=== PATIENT | male | born 1955 | race Caucasian/White ===

== ENCOUNTER 2022-12-30 10:52 | Outpatient (REF) | payer OTHER, SELFPAY ==
[2022-12-30 13:40] LABS: Hematocrit 44.2 % (42.0-52.0); Hemoglobin 14.7 g/dl (14.0-18.0); Mean Corpuscular HGB Conc 33.3 g/dl (31.0-36.0); Mean Corpuscular Hemoglobin 30.4 pg (27.0-33.0); Mean Corpuscular Volume 91.3 fL (80.0-98.0); Mean Platelet Volume 9.7 fL (9.4-12.4); Platelet Count 180 X10*3/uL (160-400); Red Blood Count 4.84 X10*6/uL (4.60-5.80); Red Cell Distribution Width 12.9 % (11.0-16.0); White Blood Count 5.3 X10*3/uL (4.8-10.8)
[2022-12-30 14:13] LABS: Alanine Aminotransferase 50 U/L (0-40); Albumin Level 4.1 g/dL (3.5-5.0); Alkaline Phosphatase 60 U/L (39-117); Anion Gap 12 (12-20); Aspartate Amino Transferase 32 U/L (5-37); Bilirubin Total 0.7 mg/dL (0.0-1.0); Blood Urea Nitrogen 15 mg/dL (9-16); Calcium 9.8 mg/dL (8.4-10.2); Carbon Dioxide 31 mmol/L (22-29); Chloride 104 mmol/L (96-108); Cholesterol 205 mg/dL; Estimated Glomerular Filt Rate > 60; Glucose Fasting 102 mg/dL (60-99); HDL Cholesterol 58 mg/dL; LDL Cholesterol Calculated 115 mg/dl; Potassium 4.6 mmol/L (3.3-5.1); Sodium 142 mmol/L (135-145); Total Protein 6.7 g/dL (6.5-8.0); Triglycerides 163 mg/dL
[2022-12-30 14:42] LABS: Folate 9.9 ng/mL (> or = 4.0); TSH reflex Free T4 0.79 uIU/mL (0.32-4.0); Vitamin B12 1245 pg/mL (200-900)
[2023-01-04 16:59] LABS: PSA, Ultra Sensitive 0.94 ng/mL
== END 2022-12-30 10:53 | disposition home or self-care (01) ==
LOC: HO.WFDLDS 10:52
PROVIDERS: Visit Provider Nurse Practitioner Family
DX: Z00.00 Encounter for general adult medical examination without abnormal findings (principal); Z20.2 Contact with and (suspected) exposure to infections with a predominantly sexual mode of transmission; Z12.5 Encounter for screening for malignant neoplasm of prostate; E55.9 Vitamin D deficiency, unspecified
CPT/HCPCS: 36415; 80053; 80061; 82306; 82607; 82746; 84153; 84443; 85027

== ENCOUNTER 2023-03-22 10:47 | Outpatient (REF) | payer OTHER, SELFPAY ==
[2023-03-22 14:55] LABS: Vitamin D 25-OH Total 79.8 ng/mL (>30)
== END 2023-03-22 10:48 | disposition home or self-care (01) ==
LOC: HO.WFDLDS 10:47
PROVIDERS: Visit Provider Nurse Practitioner Family
DX: E55.9 Vitamin D deficiency, unspecified (principal)
CPT/HCPCS: 36415; 82306

== ENCOUNTER 2023-04-25 15:33 | Outpatient (AMB) | payer OTHER, SELFPAY ==
[2023-04-25 15:48] VITALS: BP 140/86; PULSE 69; O2SAT 95; BMI 29.9
--- NOTE | 2023-04-25 15:48 | A.OFFPC_ITS ---
Vital Signs 04/25/23 15:48 04/25/23 16:52 Height 5 ft 9 in Weight 202 lb 4 oz BMI 29.9 BP 140/86 H 150/88 H Blood Pressure Location Lt brachial Lt brachial Position Sitting Sitting Pulse 69 Pulse Source Pulse Oximeter Pulse Oximetry (%) 95 Oxygen Delivery Method Room Air Intake Visit Reasons: Transfer of care [facility]/ [facility] review Allergies No Known Allergies Allergy (Verified 04/25/23 15:50) Medication List - Last Reconciled 04/25/23 by ELIEZER Sharif doxazosin (Cardura) 1 mg PO BEDTIME 30 days lisinopril-hydrochlorothiazide 10-12.5 mg 1 tab PO DAILY 30 days simvastatin 20 mg PO BEDTIME 30 days trazodone 25 mg (1/2 x 50 mg) PO BEDTIME PRN 30 days Tobacco use date assessed: 04/25/23 Fall risk assessment: No Falls in past year Last assessed Fall Risk: 04/25/23 Dental Screening Dental Screen Date: 04/25/23 Did you have a dental visit in the last 12 months?: Yes Did you have a dental problem in the last 6 months where you did not have access to dental care?: No Was dental information given to patient?: Patient has dentist HPI Transfer of care [facility]/ [facility] review HPI Details New pt is here to establish care. HTN: Blood pressure is managed with lisinopril-hydrochlorothiazide 10-12.5mg. Pt's blood pressure is elevated today, encouraged pt to monitor his BP at home. Denies chest pain, shortness of breath, headache, dizziness, and blurred vision. Pt c/o insomnia. He is currently taking trazodone 25mg. Will increase to 50mg. Pt reports ED and would like a medication for this. Will send sildenafil. Pt c/o constipation. Will send colace. Hx of vitamin D and B12 deficiency, will order labs. Refuses pneumonia and shingles vaccines. Pt will consider a repeat colon screen (mother and grandparent had colon ca). Due for PSA, will order. Denies dribbling with urination, does have a intermittent weak stream (was seeing urology previously), and denies nocturia. [facility] Medical History (Updated 04/25/23 @ 16:39 by ELIEZER Sharif) Headache High cholesterol Hypertension Irritable bowel syndrome (IBS) Sinusitis Surgical History No pertinent past surgical history Family History Mother Colon cancer Other No family history of alcoholism No family history of mental disorder Social History Housing: Other Housing Other:: Mobile home Alcohol intake: former Patient Tobacco Use Status: Former Tobacco user e-Cigarette/Vaping Use: Never Used service: No Current occupational status: retired Current occupational exposures/hazards: No Cognitive needs: No Hearing needs: No Vision needs: Yes Questionnaire Thrive Questionnaire Date Thrive assessed: 12/27/22 AUDIT C Alcohol Use Questionnaire (AUDIT-C) 1. How often do you have a drink containing alcohol?: Never Total Score: 0 ALENA-7 AMB Questionnaire ALENA-7 Date ALENA - 7 assessed: 12/27/22 Source: Developed by Drs. Christian Eugene, Nancy Calderon, Isauro Webb and colleagues, with an educational tori from [employer]. Review of Systems Const Reports as per HPI Physical exam (Primary Care) Vital Signs: Last Vital Signs Pulse 69 04/25/23 15:48 BP 150/88 H 04/25/23 16:52 Pulse Ox 95 04/25/23 15:48 Oxygen Delivery Method Room Air 04/25/23 15:48 BMI result Body Mass Index 29.9 Tobacco/Smoking Status: Tobacco use Status Tobacco use date assessed 04/25/23 04/25/23 15:54 Patient Tobacco Use Status Former Tobacco user 04/25/23 15:48 e-Cigarette/Vaping Use Never Used 04/25/23 15:48 Thrive Assessment: Date of Thrive Assessment Date Thrive assessed 12/27/22 04/25/23 15:48 Const General: cooperative Orientation/consciousness: patient oriented x3 Resp Effort & Inspection: normal respiratory effort Auscultation: clear to auscultation bilaterally Cardio Rate: regular rate Rhythm: regular rhythm Heart sounds: S1 normal heart sound present, S2 normal heart sound present and no murmurs Neuro General: patient oriented x3 Extrem Right lower extremity: no edema Left lower extremity: no edema Psych Appearance: grossly normal Mental Status: mental status grossly normal Speech and movement: Normal speech and movement present Affect: normal affect Attitude: cooperative Thought process: Normal thought process present Thought content: Normal thought content present Insight: Good insight present (Psych) Judgement: Good judgement present (Psych) Assessment and Plan Assessment & Plan (1) Hypertension: Code(s): I10 - Essential (primary) hypertension Qualifiers: Hypertension type: unspecified Qualified Code(s): I10 - Essential (primary) hypertension Plan: Monitor BP at home (2) Vitamin D deficiency: Code(s): E55.9 - Vitamin D deficiency, unspecified Plan: Labs ordered (3) B12 deficiency: Code(s): E53.8 - Deficiency of other specified B group vitamins Plan: Labs ordered (4) Screening for prostate cancer: Code(s): Z12.5 - Encounter for screening for malignant neoplasm of prostate Plan: PSA ordered (5) Constipation: Code(s): K59.00 - Constipation, unspecified Plan: Colace sent Plan The patient agreed to the use of a biomedical engineering aide for this encounter. Scribed for KARIME Butts-ERIK by Celina Fountain biomedical engineering aide, on 04/25/2023 at 16:10 EST. Orders: Orders Comprehensive [place]. Panel Fast Today I10 - Essential (primary) hypertension Lipid Panel Today I10 - Essential (primary) hypertension TSH reflex Free T4 Today I10 - Essential (primary) hypertension Complete Blood Count Auto Diff Today I10 - Essential (primary) hypertension UA CC w/rflx Micro + Cult Today I10 - Essential (primary) hypertension Vitamin D 25-OH Total Today E55.9 - Vitamin D deficiency, unspecified Vitamin B12 and Folate Today E53.8 - Deficiency of other specified B group vitamins Prostate Specific Antigen Scr Today Z12.5 - Encounter for screening for malignant neoplasm of prostate Medications: New sildenafil 100 mg PO DAILY 14 days PRN 14 tabs 0RF sexual activity docusate sodium (Colace) 100 mg PO BID 30 days 60 caps 3RF Changed From trazodone 25 mg (1/2 x 50 mg) PO BEDTIME 30 days PRN 30 tabs 2RF insomnia To trazodone 50 mg PO BEDTIME 30 days PRN 30 tabs 2RF insomnia Coding Level of Care Code New Pt Level 3 (78322) Diagnoses Hypertension I10 Hypertension type: unspecified Vitamin D deficiency E55.9 B12 deficiency E53.8 Screening for prostate cancer Z12.5 Constipation K59.00
[2023-04-25 16:52] VITALS: BP 150/88
== END 2023-04-25 16:58 | disposition home or self-care (01) ==
PROVIDERS: Visit Provider Nurse Practitioner Family
DX: I10 Essential (primary) hypertension (principal); E55.9 Vitamin D deficiency, unspecified; E53.8 Deficiency of other specified B group vitamins; Z12.5 Encounter for screening for malignant neoplasm of prostate; K59.00 Constipation, unspecified
CPT/HCPCS: 99203; 99213

== ENCOUNTER 2023-05-17 08:58 | Outpatient (AMB) | payer OTHER, SELFPAY ==
--- NOTE | 2023-05-17 09:44 | MHC.OFFWIV ---
Intake Vital Signs 05/17/23 09:50 Height 5 ft 9 in Weight 201 lb 2 oz BMI 29.7 BP 124/74 Blood Pressure Location Rt brachial Position Sitting Pulse 72 Pulse Source Pulse Oximeter Temp 97.2 F Temp Source Temporal Artery Scan Pulse Oximetry (%) 96 Oxygen Delivery Method Room Air Intake Visit Reasons: EP Weak/Difficulty breathing/Stomach (masked) Intake Note: Pt is here c/o having little to no energy for the past four days. Pt states he is having trouble sleeping and is having some stomach discomforts on and off. Patient Tobacco Use Status: Former Tobacco user Allergies No Known Allergies Allergy (Verified 05/19/23 18:15) Medication List - Last Reconciled 05/17/23 by Yossi Nazario MD docusate sodium (Colace) 100 mg PO BID 30 days doxazosin (Cardura) 1 mg PO BEDTIME 30 days lisinopril-hydrochlorothiazide 10-12.5 mg 1 tab PO DAILY 30 days sildenafil 100 mg PO DAILY PRN 14 days simvastatin 20 mg PO BEDTIME 30 days trazodone 50 mg PO BEDTIME PRN 30 days HPI EP Weak/Difficulty breathing/Stomach (masked) HPI Details As per the intake. [facility] Medical History (Updated 05/17/23 @ 10:33 by Yossi Nazario MD) Headache High cholesterol Hypertension Irritable bowel syndrome (IBS) Sinusitis Surgical History No pertinent past surgical history Family History Mother Colon cancer Other No family history of alcoholism No family history of mental disorder Social History Housing: Other Housing Other:: Mobile home Alcohol intake: former Patient Tobacco Use Status: Former Tobacco user e-Cigarette/Vaping Use: Never Used service: No Current occupational status: retired Current occupational exposures/hazards: No Cognitive needs: No Hearing needs: No Vision needs: Yes Physical Exam Vital Signs: Last Vital Signs Temp 97.2 F 05/17/23 09:50 Pulse 72 05/17/23 09:50 BP 124/74 05/17/23 09:50 Pulse Ox 96 05/17/23 09:50 Oxygen Delivery Method Room Air 05/17/23 09:50 BMI result Body Mass Index 29.7 Const General: cooperative and healthy appearing Nutritional Appearance: well nourished Orientation/consciousness: patient oriented x3 Limitations: no limitations HEENT Head: Yes normal to inspection Eyes General: appearance normal, both eyes and all related structures Neck Neck: Yes normal visual inspection Chest Chest palpation & inspection: normal palpation of entire chest wall Resp Effort & Inspection: normal respiratory effort Neuro General: patient oriented x3 Assessment & Plan Assessment & Plan (1) Fatigue: Code(s): R53.83 - Other fatigue Plan: Blood work and COVID testing has been done. Will call with results. Orders: Orders SARS-CoV2/FLU/RSV 05/17/23 R43.9 - Unspecified disturbances of smell and taste Basic Metabolic Panel 05/17/23 R53.83 - Other fatigue Lipid Panel 05/17/23 R53.83 - Other fatigue Liver Panel 05/17/23 R53.83 - Other fatigue Thyroid Stimulating Hormone 05/17/23 R53.83 - Other fatigue Complete Blood Count no Diff 05/17/23 R53.83 - Other fatigue Erythrocyte Sedimentation Rate 05/17/23 R53.83 - Other fatigue Coding Level of Care Code Est Pt Level 3 (19046) Diagnoses Fatigue R53.83
[2023-05-17 09:50] VITALS: BP 124/74; PULSE 72; TEMP 36.2; O2SAT 96; BMI 29.7
== END 2023-05-17 11:13 | disposition home or self-care (01) ==
PROVIDERS: PCP Nurse Practitioner Family; Visit Provider Internal Medicine
DX: R53.83 Other fatigue (principal)
CPT/HCPCS: 99213

== ENCOUNTER 2023-05-17 10:32 | Outpatient (REF) | payer OTHER, SELFPAY ==
[2023-05-17 13:40] LABS: Hematocrit 43.4 % (42.0-52.0); Hemoglobin 14.8 g/dl (14.0-18.0); Mean Corpuscular HGB Conc 34.1 g/dl (31.0-36.0); Mean Corpuscular Hemoglobin 30.5 pg (27.0-33.0); Mean Corpuscular Volume 89.3 fL (80.0-98.0); Mean Platelet Volume 9.7 fL (9.4-12.4); Platelet Count 186 X10*3/uL (160-400); Red Blood Count 4.86 X10*6/uL (4.60-5.80); Red Cell Distribution Width 12.3 % (11.0-16.0); White Blood Count 4.4 X10*3/uL (4.8-10.8)
[2023-05-17 14:12] LABS: Alanine Aminotransferase 41 U/L (0-40); Albumin Level 4.3 g/dL (3.5-5.0); Alkaline Phosphatase 52 U/L (39-117); Anion Gap 11 (12-20); Aspartate Amino Transferase 25 U/L (5-37); Bilirubin Direct 0.2 mg/dL (0.0-0.5); Bilirubin Total 0.7 mg/dL (0.0-1.0); Blood Urea Nitrogen 15 mg/dL (9-16); Carbon Dioxide 28 mmol/L (22-29); Chloride 103 mmol/L (96-108); Cholesterol 182 mg/dL (<200); Estimated Glomerular Filt Rate > 60; Glucose Random 103 mg/dL (60-115); HDL Cholesterol 53 mg/dL (>40); LDL Cholesterol Calculated 98 mg/dL (<100); Sodium 138 mmol/L (135-145); Thyroid Stimulating Hormone 0.77 uIU/mL (0.32-4.0); Total Protein 7.2 g/dL (6.5-8.0); Triglycerides 158 mg/dL (<150)
[2023-05-17 14:18] LABS: Erythrocyte Sedimentation Rate 2 MM/HR (0-15)
[2023-05-17 18:03] LABS: Influenza A PCR NEGATIVE (Negative); Influenza B PCR NEGATIVE (Negative); Resp Syncy Virus RNA Qual PCR NEGATIVE (Negative); SARS COV2 PCR INHOUSE NEGATIVE (Negative)
== END 2023-05-17 10:33 | disposition home or self-care (01) ==
LOC: HO.HMGCLDS 10:32
PROVIDERS: PCP Nurse Practitioner Family; Visit Provider Internal Medicine
DX: R53.83 Other fatigue (principal); R43.9 Unspecified disturbances of smell and taste; Z20.822 Contact with and (suspected) exposure to COVID-19
CPT/HCPCS: 0241U; 36415; 80048; 80061; 80076; 84443; 85027; 85652

== ENCOUNTER 2023-05-30 09:50 | Outpatient (REF) | payer OTHER, SELFPAY ==
[2023-05-30 13:25] LABS: MANUAL DIFF FLAG NO
[2023-05-30 13:38] LABS: Basophils Percent Auto 0.4 % (0-2); Eosinophils Absolute Auto 0.1 X10*3/uL (0.0-0.4); Eosinophils Percent Auto 1.1 % (0-4); Hemoglobin 14.8 g/dl (14.0-18.0); Imm Gran Abs Auto 0.02 X10*3/uL (0.00-0.03); Imm Gran Pct Auto 0.4 % (0.0-0.4); Lymphocytes Absolute Auto 1.5 X10*3/uL (1.2-4.9); Lymphocytes Percent Auto 34.5 % (20-40); Mean Corpuscular HGB Conc 33.6 g/dl (31.0-36.0); Mean Corpuscular Hemoglobin 30.8 pg (27.0-33.0); Mean Corpuscular Volume 91.7 fL (80.0-98.0); Mean Platelet Volume 9.5 fL (9.4-12.4); Monocytes Absolute Auto 0.5 X10*3/uL (0.1-1.2); Monocytes Percent Auto 10.5 % (2-11); Neutrophils Absolute Auto 2.4 x10*3/uL (2.0-8.3); Neutrophils Percent Auto 53.1 % (45-73); Platelet Count 201 X10*3/uL (160-400); Red Cell Distribution Width 12.6 % (11.0-16.0); White Blood Count 4.5 X10*3/uL (4.8-10.8)
[2023-05-30 13:51] LABS: Appearance Urine Clear; Color Urine Yellow; Glucose Urine UA Negative (Negative); Leukocyte Esterase Urine Negative (Negative); Nitrite Urine Negative (Negative); PH 6.5 (5.0-9.0); Specific Gravity - Urine 1.025 (1.005-1.025); Urine Blood Negative (Negative); Urine Ketones Negative (Negative); Urine Protein Negative (Neg-Trace)
[2023-05-30 14:55] LABS: Alanine Aminotransferase 49 U/L (0-40); Albumin Level 4.1 g/dL (3.5-5.0); Alkaline Phosphatase 49 U/L (39-117); Anion Gap 11 (12-20); Aspartate Amino Transferase 31 U/L (5-37); Bilirubin Total 0.6 mg/dL (0.0-1.0); Blood Urea Nitrogen 15 mg/dL (9-16); Calcium 9.7 mg/dL (8.4-10.2); Carbon Dioxide 31 mmol/L (22-29); Chloride 103 mmol/L (96-108); Cholesterol 192 mg/dL (<200); Estimated Glomerular Filt Rate > 60; Glucose Fasting 102 mg/dL (60-99); HDL Cholesterol 52 mg/dL (>40); LDL Cholesterol Calculated 106 mg/dL (<100); Potassium 4.3 mmol/L (3.3-5.1); Sodium 141 mmol/L (135-145); TSH reflex Free T4 0.42 uIU/mL (0.32-4.0); Triglycerides 171 mg/dL (<150); Vitamin D 25-OH Total 28.8 ng/mL (>30)
[2023-05-30 15:31] LABS: Folate 7.6 ng/mL (> or = 4.0); Prostate Specific Antigen Scr 1.04 ng/mL (<0.05-4.0); Vitamin B12 408 pg/mL (200-900)
== END 2023-05-30 09:51 | disposition home or self-care (01) ==
LOC: HO.HMGCLDS 09:50
PROVIDERS: PCP Nurse Practitioner Family; Visit Provider Nurse Practitioner Family
DX: E53.8 Deficiency of other specified B group vitamins (principal); I10 Essential (primary) hypertension; E55.9 Vitamin D deficiency, unspecified; R74.8 Abnormal levels of other serum enzymes; Z12.5 Encounter for screening for malignant neoplasm of prostate
CPT/HCPCS: 36415; 80053; 80061; 81003; 82306; 82607; 82746; 84153; 84443; 85025

== ENCOUNTER 2023-06-07 10:19 | Outpatient (REF) | payer OTHER, SELFPAY ==
--- NOTE | ~2023-06-07 | US_ITS ---
EXAMINATION: US ABDOMEN COMPLETE CLINICAL INFORMATION: Abnormal levels of other serum enzymes. COMPARISON: None available. TECHNIQUE: Real-time imaging of the abdominal viscera. FINDINGS: PANCREAS: The pancreas appears unremarkable, without masses or ductal dilatation, with the exception of the tail which is obscured by bowel gas. ABDOMINAL AORTA: The proximal and distal segments are normal in caliber. Mid abdominal aorta is not visualized. INFERIOR VENA CAVA: Visualized portions are normal. LIVER: The liver is normal in size. The liver contour is normal. There is diffuse increased liver parenchymal echogenicity, consistent with hepatic steatosis. No focal hepatic lesion. There is no intrahepatic biliary duct dilatation seen. GALLBLADDER: Normal. The gallbladder is physiologically distended without evidence of stones, sludge, polyps, wall thickening or pericholecystic fluid. COMMON BILE DUCT: Normal in caliber measuring 0.28 cm in diameter. RIGHT KIDNEY: A benign lower pole 1.0 cm Bosniak class I renal cyst is noted which requires no additional imaging or follow up. No solid renal masses are seen. No hydronephrosis or renal calculi. The kidney measures 14.5 cm in maximum dimension. LEFT KIDNEY: A benign lower pole 2.8 cm Bosniak class I renal cyst is noted which requires no additional imaging or follow up. No solid renal masses are seen. No hydronephrosis or renal calculi. The kidney measures 14.0 cm in maximum dimension. SPLEEN: Normal. The spleen measures 10.5 cm in maximum dimension. FREE FLUID: None. US/US abdomen complete IMPRESSION: Hepatic steatosis.
== END 2023-06-07 10:20 | disposition home or self-care (01) ==
LOC: HO.HMGCX 10:19
PROVIDERS: PCP Nurse Practitioner Family; Visit Provider Nurse Practitioner Family
DX: R74.8 Abnormal levels of other serum enzymes (principal)
CPT/HCPCS: 76700

== ENCOUNTER 2023-08-04 11:52 | Outpatient (REF) | payer OTHER, SELFPAY ==
[2023-08-05 03:57] LABS: HBS Num1 0.17 mIU/mL (0-7.99); HBc Num1 0.07 S/CO (0.00-0.79); HBsAGNum1 0.33 S/CO (0.00-0.99); Hepatitis A Antibody IgM 0.16 Index (0-0.79); Hepatitis B Core Antibody Nonreactive (Nonreactive); Hepatitis B Surface Antigen Negative (Negative); ~HepC Num1 0.06 S/CO (0.00-0.79); ~Hepatitis A Antibody IgM Nonreactive (Nonreactive); ~Hepatitis B Surface Antibody NONREACTIVE (Nonreactive); ~Hepatitis C Antibody Nonreactive (Nonreactive)
== END 2023-08-04 11:53 | disposition home or self-care (01) ==
LOC: HO.HMGCLDS 11:52
PROVIDERS: PCP Nurse Practitioner Family; Visit Provider Nurse Practitioner Family
DX: R74.8 Abnormal levels of other serum enzymes (principal)
CPT/HCPCS: 36415; 86704; 86706; 86709; 86803; 87340

== ENCOUNTER 2023-08-04 12:04 | Outpatient (AMB) | payer OTHER, SELFPAY ==
--- NOTE | 2023-08-04 13:22 | MHC.OFFWIV ---
Intake Vital Signs 08/04/23 13:28 Height 5 ft 9 in Weight 202 lb BMI 29.8 BP 128/76 Blood Pressure Location Rt brachial Position Sitting Pulse 76 Pulse Source Pulse Oximeter Temp 97.8 F Temp Source Temporal Artery Scan Pulse Oximetry (%) 95 Oxygen Delivery Method Room Air Intake Visit Reasons: EP Rash RT hand Finger Intake Note: pt is here for rash on right hand finger Patient Tobacco Use Status: Former Tobacco user Allergies No Known Allergies Allergy (Verified 08/04/23 13:29) Do you need a note to return to daycare/school/sports/work: Yes HPI HPI Comments History of Present Illness Details This is a 68-year-old male who presents to the office today for sick visit. Patient complaining of a rash to his right middle finger. Patient states this started approximately 4 days ago after wearing his grandmother's waiting for the 1st time. Patient is otherwise feeling well without any other active or acute complaints. [facility] Medical History (Updated 05/30/23 @ 14:58 by ELIEZER Sharif) High cholesterol Headache Hypertension Irritable bowel syndrome (IBS) Sinusitis Surgical History No pertinent past surgical history Family History Mother Colon cancer Other No family history of alcoholism No family history of mental disorder Social History Housing: Other Housing Other:: Mobile home Alcohol intake: former Patient Tobacco Use Status: Former Tobacco user e-Cigarette/Vaping Use: Never Used service: No Current occupational status: retired Current occupational exposures/hazards: No Cognitive needs: No Hearing needs: No Vision needs: Yes Review of Systems Const All systems reviewed & are unremarkable except as noted in HPI and below Reports no additional complaints Eyes Reports no additional complaints ENT Reports no additional complaints Card Reports no additional complaints Resp Reports no additional complaints GI Reports no additional complaints Reports no additional complaints Musc Reports no additional complaints Skin/Breast Reports system reviewed and no additional complaints, except as documented Neuro Reports no additional complaints Psych Reports no additional complaints Endo Reports no additional complaints Charlie/Lymph Reports no additional complaints Aller/Immun Reports no additional complaints Physical Exam Vital Signs: Last Vital Signs Temp 97.8 F 08/04/23 13:28 Pulse 76 08/04/23 13:28 BP 128/76 08/04/23 13:28 Pulse Ox 95 08/04/23 13:28 Oxygen Delivery Method Room Air 08/04/23 13:28 BMI result Body Mass Index 29.8 Const Other: Vital signs reviewed. Constitutional: Non-toxic appearing. No acute distress. Well-developed and well-nourished. HEENT: Normocephalic and atraumatic. Skin: There is a small circular erythematous maculopapular rash located at the dorsal aspect his right middle finger. Neck: Full and painless range of motion. No cervical lymphadenopathy. Cardio: Regular rate. No lower extremity edema. No JVD. Pulmonary: No respiratory distress. No accessory muscle usage. Gastrointestinal: Soft, nontender, and nondistended in all 4 quadrants. Genitourinary: No CVA tenderness. Normal range of motion in joints throughout the body. No deformity or other signs of injury. Neuro: Alert and oriented x4. Cranial nerves 2-12 grossly intact. No focal deficits appreciated. Psych: Normal mood and affect. Assessment & Plan Assessment & Plan (1) Contact dermatitis: Code(s): L25.9 - Unspecified contact dermatitis, unspecified cause Plan: This is a 68-year-old male presenting to the office complaining of a rash to his right middle finger. This rash started approximately 4 days ago after he wore his grandmother during for the 1st time. History and physical most consistent with a contact irritant dermatitis. There is no evidence of cellulitis or an abscess. Patient has been sent home on triamcinolone 0.5% cream 3 times daily. Patient advised to follow-up here or proceed to the emergency room for persistent or worsening symptoms. Medications: New triamcinolone acetonide 0.5% 1 appl topical TID 15 grams 0RF Coding Level of Care Code Est Pt Level 3 (90800) Diagnoses Contact dermatitis L25.9
[2023-08-04 13:28] VITALS: BP 128/76; PULSE 76; TEMP 36.6; O2SAT 95; BMI 29.8
== END 2023-08-04 14:34 | disposition home or self-care (01) ==
PROVIDERS: PCP Nurse Practitioner Family; Visit Provider Physician Assistant Medical
DX: L25.9 Unspecified contact dermatitis, unspecified cause (principal)
CPT/HCPCS: 99213

== ENCOUNTER 2023-10-30 14:41 | Outpatient (AMB) | payer OTHER, SELFPAY ==
[2023-10-30 14:53] VITALS: BP 110/72; PULSE 72; O2SAT 97; BMI 26.8
--- NOTE | 2023-10-30 14:53 | A.OFFPC_ITS ---
Vital Signs 10/30/23 14:53 Height 5 ft 9 in Weight 181 lb 6 oz BMI 26.8 BP 110/72 Blood Pressure Location Lt brachial Position Sitting Pulse 72 Pulse Source Pulse Oximeter Pulse Oximetry (%) 97 Oxygen Delivery Method Room Air Intake Visit Reasons: 6m Intake Note: Pt is here to follow up for HTN Allergies No Known Allergies Allergy (Verified 10/30/23 14:55) Medication List - Last Reconciled 10/30/23 by ELIEZER Sharif docusate sodium (Colace) 100 mg PO BID doxazosin (Cardura) 1 mg PO BEDTIME 90 days lisinopril-hydrochlorothiazide 10-12.5 mg 1 tab PO DAILY mometasone 50 mcg/actuation 2 sprays intranasal DAILY pantoprazole 40 mg PO DAILY sildenafil 100 mg PO DAILY PRN 30 days simvastatin 20 mg PO BEDTIME trazodone 50 mg PO BEDTIME PRN 30 days triamcinolone acetonide 0.5% 1 appl topical TID Tobacco use date assessed: 10/30/23 Fall risk assessment: No Falls in past year Last assessed Fall Risk: 10/30/23 Dental Screening Dental Screen Date: 10/30/23 Did you have a dental visit in the last 12 months?: Yes Did you have a dental problem in the last 6 months where you did not have access to dental care?: No Was dental information given to patient?: Patient has dentist HPI 6m HPI Details Pt's liver enzymes were elevated previously. Abdominal US showed fatty liver. Hepatitis screen was negative. Pt is watching his diet and remaining active. Will order labs. Denies fever, chills, and abdominal pain. Pt c/o ongoing insomnia. Will increase trazodone from 50mg to 100mg. [facility] Medical History (Updated 05/30/23 @ 14:58 by ELIEZER Sharif) High cholesterol Headache Hypertension Irritable bowel syndrome (IBS) Sinusitis Surgical History No pertinent past surgical history Family History Mother Colon cancer Other No family history of alcoholism No family history of mental disorder Social History Housing: Other Housing Other:: Mobile home Alcohol intake: former Patient Tobacco Use Status: Former Tobacco user e-Cigarette/Vaping Use: Never Used service: No Current occupational status: retired Current occupational exposures/hazards: No Cognitive needs: No Hearing needs: No Vision needs: Yes Questionnaire PHQ-9 Over the last 2 weeks, how often have you been bothered by any of the following problems? 1. Little interest or pleasure in doing things: not at all 2. Feeling down, depressed, or hopeless: not at all 3. Trouble falling or staying asleep, or sleeping too much: more than half the days 4. Feeling tired or having little energy: several days 5. Poor appetite or overeating: not at all 6. Feeling bad about yourself - or that you are a failure or have let yourself or your family down: not at all 7. Trouble concentrating on things, such as reading the newspaper or watching television: not at all 8. Moving or speaking so slowly that other people could have noticed. Or the opposite - being so fidgety or restless that you have been moving around a lot more than usual: not at all 9. Thoughts that you would be better off or of hurting yourself in some way: not at all Total score: 3 Source: Developed by Drs. Christian Eugene, Nancy Calderon, Isauro Webb and colleagues, with an educational tori from [employer]. Thrive Questionnaire Date Thrive assessed: 10/30/23 I am a: Patient What is your living situation today?: I have a steady place to live Within the past 12 months, did the food you bought not last and you didn't have the money to get more?: Sometimes True Within the past 12 months, did you worry whether your food would run out before you got money to buy more?: Never true Do you have trouble paying for medicines?: No Do you have trouble getting transportation to medical appointments?: No Do you have trouble paying your heating and electricity bill?: No Do you have trouble taking care of your child, family member or friend?: No Do you have trouble with day-to-day activities such as bathing, preparing meals, shopping, managing finances, etc.?: No Are you currently unemployed and looking for a job?: Yes Are you interested in more education?: No THRIVE Score: 1 AUDIT C Alcohol Use Questionnaire (AUDIT-C) 1. How often do you have a drink containing alcohol?: Never Total Score: 0 ALENA-7 AMB Questionnaire ALENA-7 Date ALENA - 7 assessed: 10/30/23 Feeling nervous, anxious, or on edge: 1 = Several days Not being able to stop or control worryin = Several days Worrying too much about different things: 1 = Several days Trouble relaxin = Several days Being so restless that it is hard to sit still: 0 = Not at all Becoming easily annoyed or irritable: 1 = Several days Feeling afraid as if something awful might happen: 1 = Several days Total ALENA-7 score (0-4 normal; 5-9 mild; 10-14 moderate; 15-21 severe): 6 Source: Developed by Drs. Christian Eugene, Nancy Calderon, Isauro Webb and colleagues, with an educational tori from [employer]. Review of Systems Const Reports as per HPI Physical exam (Primary Care) Vital Signs: Last Vital Signs Pulse 72 10/30/23 14:53 BP 110/72 10/30/23 14:53 Pulse Ox 97 10/30/23 14:53 Oxygen Delivery Method Room Air 10/30/23 14:53 BMI result Body Mass Index 26.8 Tobacco/Smoking Status: Tobacco use Status Tobacco use date assessed 10/30/23 10/30/23 15:00 Patient Tobacco Use Status Former Tobacco user 10/30/23 14:54 e-Cigarette/Vaping Use Never Used 10/30/23 14:54 PHQ-9: PHQ-9 Score PHQ-9: Total score 3 10/30/23 16:08 Thrive Assessment: Date of Thrive Assessment Date Thrive assessed 10/30/23 10/30/23 16:08 Const General: cooperative Orientation/consciousness: patient oriented x3 Resp Effort & Inspection: normal respiratory effort Auscultation: clear to auscultation bilaterally Cardio Rate: regular rate Rhythm: regular rhythm Heart sounds: S1 normal heart sound present and S2 normal heart sound present GI Palpation (GI): Soft to palpation and nontender Auscultation: normal bowel sounds Neuro General: patient oriented x3 Psych Appearance: grossly normal Mental Status: mental status grossly normal Speech and movement: Normal speech and movement present Affect: normal affect Attitude: cooperative Thought process: Normal thought process present Thought content: Normal thought content present Insight: Good insight present (Psych) Judgement: Good judgement present (Psych) Assessment and Plan Assessment & Plan (1) Elevated liver enzymes: Code(s): R74.8 - Abnormal levels of other serum enzymes Plan: Labs ordered (2) Insomnia: Code(s): G47.00 - Insomnia, unspecified Plan: increased trazodone form 50mg to 100mg Plan The patient agreed to the use of a durable medical equipment technician for this encounter. Scribed for KARIME Butts- by Celina Fountain durable medical equipment technician, on 10/30/2023 at 15:15 EST. Orders: Orders Comprehensive [place]. Panel Fast Today R74.8 - Abnormal levels of other serum enzymes Complete Blood Count Auto Diff Today R74.8 - Abnormal levels of other serum enzymes TSH reflex Free T4 Today R74.8 - Abnormal levels of other serum enzymes UA CC w/rflx Micro + Cult Today R74.8 - Abnormal levels of other serum enzymes Lipid Panel Today R74.8 - Abnormal levels of other serum enzymes Medications: New mometasone 50 mcg/actuation administer into each nostril 2 sprays intranasal DAILY 17 grams 2RF Changed From sildenafil 100 mg PO DAILY 14 days PRN 14 tabs 0RF sexual activity To sildenafil 100 mg PO DAILY PRN 30 tabs 2RF sexual activity 30 days From trazodone 50 mg PO BEDTIME 30 days PRN 30 tabs 2RF insomnia To trazodone 100 mg PO BEDTIME PRN 90 tabs 2RF insomnia 90 days From doxazosin (Cardura) 1 mg PO BEDTIME 30 days 30 tabs 3RF To doxazosin (Cardura) 1 mg PO BEDTIME 90 tabs 1RF 90 days Refilled pantoprazole 40 mg PO DAILY 90 tabs 1RF simvastatin 20 mg PO BEDTIME 90 tabs 1RF docusate sodium (Colace) 100 mg PO BID 180 caps 1RF lisinopril-hydrochlorothiazide 10-12.5 mg 1 tab PO DAILY 90 tabs 1RF Coding Level of Care Code Est Pt Level 3 (90029) Diagnoses Elevated liver enzymes R74.8 Insomnia G47.00
== END 2023-10-30 15:44 | disposition home or self-care (01) ==
PROVIDERS: PCP Nurse Practitioner Family; Visit Provider Nurse Practitioner Family
DX: R74.8 Abnormal levels of other serum enzymes (principal); G47.00 Insomnia, unspecified
CPT/HCPCS: 99213

== ENCOUNTER 2024-02-28 14:48 | Outpatient (AMB) | payer OTHER, SELFPAY ==
--- NOTE | 2024-02-28 14:53 | MHC.PC.OV ---
Vital Signs 02/28/24 14:55 Height 5 ft 9 in Weight 171 lb BMI 25.2 BP 112/74 Blood Pressure Location Lt brachial Position Sitting Pulse 63 Pulse Source Pulse Oximeter Pulse Oximetry (%) 97 Oxygen Delivery Method Room Air Intake Visit Reasons: 4M Intake Note: pt here for 4 mo f/u elevated Liver enzymes Allergies No Known Allergies Allergy (Verified 02/28/24 14:54) Medication List - Last Reconciled 02/28/24 by ELIEZER Sharif docusate sodium (Colace) 100 mg PO BID doxazosin (Cardura) 1 mg PO BEDTIME 90 days fluticasone propionate 50 mcg/actuation 1 spray intranasal BID lisinopril-hydrochlorothiazide 10-12.5 mg 1 tab PO DAILY pantoprazole 40 mg PO DAILY sildenafil 100 mg PO DAILY PRN 30 days simvastatin 20 mg PO BEDTIME trazodone 150 mg PO BEDTIME PRN 90 days triamcinolone acetonide 0.5% 1 appl topical TID Tobacco use date assessed: 02/28/24 Dental Screening Dental Screen Date: 02/28/24 Did you have a dental visit in the last 12 months?: Yes Did you have a dental problem in the last 6 months where you did not have access to dental care?: No Was dental information given to patient?: Patient has dentist HPI 4M HPI Details Pt c/o fatigue. He does report ongoing insomnia as well. Pt has been taking trazodone 100mg which is not helping. Will increase to 150mg. Will also order labs due to fatigue. Denies fever, chills, blood in stool, and dizziness. [facility] Medical History High cholesterol Headache Hypertension Irritable bowel syndrome (IBS) Sinusitis Surgical History No pertinent past surgical history Family History Mother Colon cancer Other No family history of alcoholism No family history of mental disorder Social History Housing: Other Housing Other:: Mobile home Alcohol intake: former Patient Tobacco Use Status: Former Tobacco user e-Cigarette/Vaping Use: Never Used service: No Current occupational status: retired Current occupational exposures/hazards: No Cognitive needs: No Hearing needs: No Vision needs: Yes Questionnaire PHQ-9 Over the last 2 weeks, how often have you been bothered by any of the following problems? 65894 - PHQ-9 Billing: Patient declined-do not bill Source: Developed by Nancy Powers Kurt Kroenke and colleagues, with an educational tori from [employer]). Thrive Questionnaire Date Thrive assessed: 10/30/23 ALENA-7 AMB Questionnaire ALENA-7 Date ALENA - 7 assessed: 10/30/23 Source: Developed by Nancy Powers [employer]enke and colleagues, with an educational tori from [employer] (formerly [employer]). ALENA-7 Assessment Billing ALENA-7 Assessment Tool: pt declined-do not bill Review of Systems Const Reports as per HPI Physical exam (Primary Care) Vital Signs: Last Vital Signs Pulse 63 02/28/24 14:55 BP 112/74 02/28/24 14:55 Pulse Ox 97 02/28/24 14:55 Oxygen Delivery Method Room Air 02/28/24 14:55 BMI result Body Mass Index 25.2 Tobacco/Smoking Status: Tobacco use Status Tobacco use date assessed 02/28/24 02/28/24 15:02 Patient Tobacco Use Status Former Tobacco user 02/28/24 14:54 e-Cigarette/Vaping Use Never Used 02/28/24 14:54 Thrive Assessment: Date of Thrive Assessment Date Thrive assessed 10/30/23 02/28/24 14:54 Const General: cooperative Orientation/consciousness: patient oriented x3 Resp Effort & Inspection: normal respiratory effort Auscultation: clear to auscultation bilaterally Cardio Rate: regular rate Rhythm: regular rhythm Heart sounds: S1 normal heart sound present and S2 normal heart sound present Neuro General: patient oriented x3 Psych Appearance: grossly normal Mental Status: mental status grossly normal Speech and movement: Normal speech and movement present Affect: normal affect Attitude: cooperative Thought process: Normal thought process present Thought content: Normal thought content present Insight: Good insight present (Psych) Judgement: Good judgement present (Psych) Assessment and Plan Assessment & Plan (1) Fatigue: Code(s): R53.83 - Other fatigue Plan: Labs ordered Plan The patient agreed to the use of a lpn or medical assistant for this encounter. Scribed for ELIEZER Butts by Celina Fountain lpn or medical assistant, on 02/28/2024 at 15:10 EST. Orders: Orders Vitamin B12 and Folate Today R53.83 - Other fatigue Tick-borne Disease Molecular Today R53.83 - Other fatigue Ferritin Today R53.83 - Other fatigue IRON PROFILE Today R53.83 - Other fatigue Testosterone, Free/Total Today R53.83 - Other fatigue Medications: Changed From trazodone 100 mg PO BEDTIME 90 days PRN 90 tabs 2RF insomnia To trazodone 150 mg PO BEDTIME 90 days PRN 90 tabs 2RF insomnia Refilled doxazosin (Cardura) 1 mg PO BEDTIME 90 days 90 tabs 0RF sildenafil 100 mg PO DAILY 30 days PRN 30 tabs 0RF sexual activity lisinopril-hydrochlorothiazide 10-12.5 mg 1 tab PO DAILY 90 tabs 1RF pantoprazole 40 mg PO DAILY 90 tabs 1RF simvastatin 20 mg PO BEDTIME 90 tabs 1RF Coding Level of Care Code Est Pt Level 3 (99066) Diagnoses Fatigue R53.83
[2024-02-28 14:55] VITALS: BP 112/74; PULSE 63; O2SAT 97; BMI 25.2
== END 2024-02-28 15:53 | disposition home or self-care (01) ==
PROVIDERS: PCP Nurse Practitioner Family; Visit Provider Nurse Practitioner Family
DX: R53.83 Other fatigue (principal)
CPT/HCPCS: 99213

== ENCOUNTER 2024-02-29 08:00 | Outpatient (REF) | payer OTHER, SELFPAY ==
[2024-02-29 10:22] LABS: MANUAL DIFF FLAG NO
[2024-02-29 10:43] LABS: Basophils Percent Auto 0.3 % (0-2); Eosinophils Percent Auto 0.8 % (0-4); Hematocrit 41.4 % (42.0-52.0); Imm Gran Abs Auto 0.01 X10*3/uL (0.00-0.03); Imm Gran Pct Auto 0.3 % (0.0-0.4); Lymphocytes Absolute Auto 1.4 X10*3/uL (1.2-4.9); Mean Corpuscular HGB Conc 33.8 g/dl (31.0-36.0); Mean Corpuscular Hemoglobin 30.8 pg (27.0-33.0); Mean Corpuscular Volume 91.2 fL (80.0-98.0); Monocytes Absolute Auto 0.6 X10*3/uL (0.1-1.2); Monocytes Percent Auto 15.2 % (2-11); Neutrophils Absolute Auto 1.7 x10*3/uL (2.0-8.3); Neutrophils Percent Auto 46.4 % (45-73); Platelet Count 149 X10*3/uL (160-400); Red Blood Count 4.54 X10*6/uL (4.60-5.80); Red Cell Distribution Width 12.7 % (11.0-16.0); White Blood Count 3.7 X10*3/uL (4.8-10.8)
[2024-02-29 11:15] LABS: Alanine Aminotransferase 24 U/L (0-40); Albumin Level 3.9 g/dL (3.5-5.0); Alkaline Phosphatase 70 U/L (39-117); Anion Gap 12 (12-20); Aspartate Amino Transferase 23 U/L (5-37); Bilirubin Total 0.6 mg/dL (0.0-1.0); Blood Urea Nitrogen 16 mg/dL (9-16); Calcium 9.5 mg/dL (8.4-10.2); Carbon Dioxide 30 mmol/L (22-29); Chloride 103 mmol/L (96-108); Cholesterol 143 mg/dL (<200); Estimated Glomerular Filt Rate > 60; Ferritin 325 ng/mL (20-250); Folate 7.9 ng/mL (> or = 4.0); Glucose Fasting 107 mg/dL (60-99); HDL Cholesterol 48 mg/dL (>40); Iron 130 mcg/dL (45-160); LDL Cholesterol Calculated 82 mg/dL (<100); Percent Iron Saturation 42 % (15-50); Potassium 3.8 mmol/L (3.3-5.1); Sodium 141 mmol/L (135-145); TSH reflex Free T4 0.99 uIU/mL (0.32-4.0); Total Iron Binding Capacity 309 mcg/dL (228-428); Total Protein 6.5 g/dL (6.5-8.0); Triglycerides 65 mg/dL (<150); Unsaturated Iron Binding 179 ug/dL; Vitamin B12 285 pg/mL (200-900)
[2024-03-04 15:12] LABS: A. Phagocytphilium DNA,RT-PCR NOT DETECTED (NOT DETECTED); Babesia Microti DNA, RT-PCR NOT DETECTED (NOT DETECTED); Borrelia Miyamotoi,DNA RT-PCR NOT DETECTED (NOT DETECTED); E.Chaffeensis DNA RT-PCR NOT DETECTED (NOT DETECTED); Lyme(Borrelia ssp)DNA RT-PCR NOT DETECTED (NOT DETECTED)
[2024-03-07 11:14] LABS: Testosterone, Total 589 ng/dL (250-1100)
== END 2024-02-29 08:01 | disposition home or self-care (01) ==
LOC: HO.HMGCLDS 08:00
PROVIDERS: PCP Nurse Practitioner Family; Visit Provider Nurse Practitioner Family
DX: R53.83 Other fatigue (principal); R74.8 Abnormal levels of other serum enzymes
CPT/HCPCS: 36415; 80053; 80061; 82607; 82728; 82746; 83540; 84402; 84403; 84443; 85025; 87468; 87469; 87478; 87484; 87798

== ENCOUNTER 2024-04-23 09:45 | Outpatient (REF) | payer OTHER, SELFPAY ==
[2024-04-23 13:45] LABS: MANUAL DIFF FLAG NO
[2024-04-23 14:05] LABS: Basophils Percent Auto 0.5 % (0-2); Hematocrit 40.5 % (42.0-52.0); Hemoglobin 13.6 g/dl (14.0-18.0); Imm Gran Abs Auto 0.01 X10*3/uL (0.00-0.03); Imm Gran Pct Auto 0.3 % (0.0-0.4); Lymphocytes Absolute Auto 1.1 X10*3/uL (1.2-4.9); Lymphocytes Percent Auto 28.8 % (20-40); Mean Corpuscular HGB Conc 33.6 g/dl (31.0-36.0); Mean Corpuscular Hemoglobin 30.5 pg (27.0-33.0); Mean Corpuscular Volume 90.8 fL (80.0-98.0); Mean Platelet Volume 9.5 fL (9.4-12.4); Monocytes Absolute Auto 0.4 X10*3/uL (0.1-1.2); Monocytes Percent Auto 8.9 % (2-11); Neutrophils Absolute Auto 2.4 x10*3/uL (2.0-8.3); Neutrophils Percent Auto 60.5 % (45-73); Platelet Count 162 X10*3/uL (160-400); Red Blood Count 4.46 X10*6/uL (4.60-5.80); Red Cell Distribution Width 12.5 % (11.0-16.0); White Blood Count 3.9 X10*3/uL (4.8-10.8)
== END 2024-04-23 09:46 | disposition home or self-care (01) ==
LOC: HO.HMGCLDS 09:45
PROVIDERS: PCP Nurse Practitioner Family; Visit Provider Nurse Practitioner Family
DX: D69.6 Thrombocytopenia, unspecified (principal); D72.819 Decreased white blood cell count, unspecified
CPT/HCPCS: 36415; 85025

== ENCOUNTER 2024-04-30 14:38 | Outpatient (AMB) | payer OTHER, SELFPAY ==
[2024-04-30 14:40] VITALS: BP 126/78; PULSE 72; O2SAT 98; BMI 26.0
--- NOTE | 2024-04-30 14:40 | A.OFFPC_ITS ---
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 Accompanied by: Self / Same As Patient Allergies No Known Allergies Allergy (Verified 04/30/24 15:23) Medication List - Last Reconciled 04/30/24 by ELIEZER Sharif atorvastatin 20 mg PO BEDTIME 90 days doxazosin (Cardura) 1 mg PO BEDTIME 90 days fluticasone propionate 50 mcg/actuation 1 spray intranasal BID lisinopril-hydrochlorothiazide 10-12.5 mg 1 tab PO DAILY pantoprazole 40 mg PO DAILY sildenafil 100 mg PO DAILY PRN 30 days trazodone 150 mg PO BEDTIME PRN 90 days triamcinolone acetonide 0.5% 1 appl topical TID Tobacco use date assessed: 02/28/24 Fall risk assessment: No Falls in past year Last assessed Fall Risk: 04/30/24 Dental Screening Dental Screen Date: 02/28/24 HPI PE - see comments HPI Details Pt is here for a PE. Labs were already performed. Due for PSA next month, will order. Denies dribbling with urination, weak stream, and frequent nocturia. Due for colon screen, will order cologuard. Anemia noted on recent labs, will repeat labs, will cont to monitor. Pt reports lower transverse back pain, with radiculopathy or s/s of cauda equina. [facility] Medical History High cholesterol Headache Hypertension Irritable bowel syndrome (IBS) Sinusitis Surgical History No pertinent past surgical history Family History Mother Colon cancer Other No family history of alcoholism No family history of mental disorder Social History Housing: Other Housing Other:: Mobile home Alcohol intake: former Patient Tobacco Use Status: Former Tobacco user e-Cigarette/Vaping Use: Never Used service: No Current occupational status: retired Current occupational exposures/hazards: No Cognitive needs: No Hearing needs: No Vision needs: Yes Questionnaire PHQ-9 Over the last 2 weeks, how often have you been bothered by any of the following problems? 05369 - PHQ-9 Billing: Patient declined-do not bill Source: Developed by Nancy Powers Kurt [employer]enke and colleagues, with an educational tori from [employer]. Thrive Questionnaire Date Thrive assessed: 10/30/23 ALENA-7 AMB Questionnaire ALENA-7 Date ALENA - 7 assessed: 10/30/23 Source: Developed by Nancy Powers Kurt [employer]enke and colleagues, with an educational tori from [employer]. ALENA-7 Assessment Billing ALENA-7 Assessment Tool: pt declined-do not bill Review of Systems Const Denies chills and Denies fever(s) Eyes Denies blurry vision ENT Denies vertigo, Denies dizziness and Denies sore throat Card Denies chest pain at rest, Denies chest pain with activity, Denies diaphoresis, Denies dyspnea and Denies dyspnea on exertion Resp Denies cough, Denies dyspnea, Denies dyspnea on exertion and Denies wheezing GI Denies abdominal pain, Denies melena, Denies hematochezia, Denies constipation, Denies diarrhea and Denies loose stools Denies hematuria Musc Denies numbness and Denies tingling Skin/Breast Denies lesions Neuro Denies vertigo, Denies dizziness, Denies numbness and Denies tingling Psych Denies anxiety, Denies depression, Denies homicidal ideation, Denies suicidal ideation and Denies other (substance abuse) Aller/Immun Denies wheezing Physical exam (Primary Care) Vital Signs: Last Vital Signs Pulse 72 04/30/24 14:40 BP 126/78 04/30/24 14:40 Pulse Ox 98 04/30/24 14:40 BMI result Body Mass Index 26.0 Tobacco/Smoking Status: Tobacco use Status Tobacco use date assessed 02/28/24 04/30/24 14:41 Patient Tobacco Use Status Former Tobacco user 04/30/24 14:41 e-Cigarette/Vaping Use Never Used 04/30/24 14:41 Thrive Assessment: Date of Thrive Assessment Date Thrive assessed 10/30/23 04/30/24 14:41 Const General: cooperative Nutritional Appearance: well nourished Orientation/consciousness: patient oriented x3 HENMT Head: Yes normal to inspection, Yes normocephalic and Yes atraumatic Ears: TM's normal bilaterally Eyes General: appearance normal, both eyes and all related structures Alignment and Position: alignment normal and position normal Neck Neck: Yes normal visual inspection and Yes no lymphadenopathy Thyroid: Thyroid normal Resp Effort & Inspection: normal respiratory effort Auscultation: clear to auscultation bilaterally Cardio Rate: regular rate Rhythm: regular rhythm Heart sounds: S1 normal heart sound present, S2 normal heart sound present and no murmurs GI Palpation (GI): Soft to palpation and nontender Auscultation: normal bowel sounds Other: BEE: prostate slightly enlarged, no nodules palpated, smooth central groove Male General Exam: Yes normal external exam Penis: normal penis Scrotum: scrotum normal, testes descended bilaterally and no inguinal hernias Testes: no testicular mass Skin Rashes: no rashes Neuro General: patient oriented x3, moves all extremities, no focal motor deficits and deep tendon reflexes 2+ bilaterally Romberg Test: Negative Extrem Other: slight tenderness with palpation of lower transverse back. Psych Appearance: grossly normal Mental Status: mental status grossly normal Speech and movement: Normal speech and movement present Affect: normal affect Attitude: cooperative Thought process: Normal thought process present Thought content: Normal thought content present Insight: Good insight present (Psych) Judgement: Good judgement present (Psych) Assessment and Plan Assessment & Plan (1) Screening for prostate cancer: Code(s): Z12.5 - Encounter for screening for malignant neoplasm of prostate Plan: PSA ordered (2) Physical exam, annual: Code(s): Z00.00 - Encounter for general adult medical examination without abnormal findings Plan: Labs done (3) Leukopenia: Code(s): D72.819 - Decreased white blood cell count, unspecified (4) Anemia: Code(s): D64.9 - Anemia, unspecified (5) Lower back pain: Code(s): M54.50 - Low back pain, unspecified Plan: muscle relaxor sent Plan The patient agreed to the use of a biomedical service engineer for this encounter. Scribed for KARIME Butts-BC by Celina Fountain biomedical service engineer, on 04/30/2024 at 15:10 EST. Orders: Orders Prostate Specific Antigen Scr Today Z12.5 - Encounter for screening for malignant neoplasm of prostate Referrals Cologuard Test Z12.11 - Encounter for screening for malignant neoplasm of colon, Z12.12 - Encounter for screening for malignant neoplasm of rectum Medications: New atorvastatin 20 mg PO BEDTIME 90 tabs 0RF 90 days cyclobenzaprine 10 mg PO BEDTIME PRN 30 tabs 0RF muscle spasm 30 days Refilled doxazosin (Cardura) 1 mg PO BEDTIME 90 tabs 0RF 90 days Discontinued simvastatin Discontinued Reason: Doctor's Order 20 mg PO BEDTIME 90 tabs 1RF Coding Level of Care Code Est Pt Prev Care >65y(33254) Diagnoses Screening for prostate cancer Z12.5 Physical exam, annual Z00.00 Leukopenia D72.819 Anemia D64.9 Lower back pain M54.50
== END 2024-04-30 16:52 | disposition home or self-care (01) ==
PROVIDERS: PCP Nurse Practitioner Family; Visit Provider Nurse Practitioner Family
DX: Z12.5 Encounter for screening for malignant neoplasm of prostate (principal); Z00.00 Encounter for general adult medical examination without abnormal findings; D72.819 Decreased white blood cell count, unspecified; D64.9 Anemia, unspecified; M54.50 Low back pain, unspecified
CPT/HCPCS: 99397

== ENCOUNTER 2024-08-20 09:02 | Outpatient (AMB) | payer OTHER, SELFPAY ==
[2024-08-20 09:17] VITALS: BP 110/72; PULSE 80; TEMP 36.8; O2SAT 97; BMI 26.6
--- NOTE | 2024-08-20 09:17 | MHC.OFFWIV ---
Intake Vital Signs 08/20/24 09:17 Height 5 ft 9 in Weight 180 lb BMI 26.6 BP 110/72 Blood Pressure Location Rt brachial Position Sitting Pulse 80 Pulse Source Pulse Oximeter Temp 98.3 F Temp Source Oral Pulse Oximetry (%) 97 Oxygen Delivery Method Room Air Intake Visit Reasons: EP-bloody nose, scratchy nose, cough, headaches Intake Note: Patient here for sore throat, dried up nose, congestion and cough that has been present for almost 2 weeks. Patient Tobacco Use Status: Former Tobacco user Allergies No Known Allergies Allergy (Verified 08/20/24 09:18) Do you need a note to return to daycare/school/sports/work: No HPI HPI Comments History of Present Illness Details 69 y/o male patient who presents to the walk in clinic with c/o persistent cough for few days now. He also endorses Headaches and dry nose. He has tried OTC medications with no relief. [facility] Medical History High cholesterol Headache Hypertension Irritable bowel syndrome (IBS) Sinusitis Surgical History No pertinent past surgical history Family History Mother Colon cancer Other No family history of alcoholism No family history of mental disorder Social History Housing: Other Housing Other:: Mobile home Alcohol intake: former Patient Tobacco Use Status: Former Tobacco user e-Cigarette/Vaping Use: Never Used service: No Current occupational status: retired Current occupational exposures/hazards: No Cognitive needs: No Hearing needs: No Vision needs: Yes Review of Systems Const All systems reviewed & are unremarkable except as noted in HPI and below Physical Exam Vital Signs: Last Vital Signs Temp 98.3 F 08/20/24 09:17 Pulse 80 08/20/24 09:17 BP 110/72 08/20/24 09:17 Pulse Ox 97 08/20/24 09:17 Oxygen Delivery Method Room Air 08/20/24 09:17 BMI result Body Mass Index 26.6 Const General: cooperative and no acute distress Orientation/consciousness: patient oriented x3 HEENT Head: Yes normocephalic Ears: external ears normal and TM abnormal with fluid behind the TM on the right and obstructed by cerumen on the left General nose exam: Abnormal mucous membranes and turbinates present boggy and erythematous Face and sinus: Yes sinuses nontender Mouth: moist mucous membranes and Abnormal oral and palatal mucosa present erythematous; no white patches Throat: Yes uvula midline and Yes postnasal drainage Resp Effort & Inspection: normal respiratory effort Auscultation: clear to auscultation bilaterally Cardio Heart sounds: S1 normal heart sound present and S2 normal heart sound present Neuro General: patient oriented x3 Assessment & Plan Assessment & Plan (1) Cough: Code(s): R05.9 - Cough, unspecified Qualifiers: Cough type: subacute Qualified Code(s): R05.2 - Subacute cough Plan: Ordered Benzonate. Rapid Strep Negative. Continue with home remedies. Medications: New benzonatate 100 mg PO TID 90 caps 0RF R05.2 - Subacute cough Coding Level of Care Code Est Pt Level 3 (81722) Diagnoses Subacute cough R05.2 Cough type: subacute Time Spent (min) 15
== END 2024-08-20 09:43 | disposition home or self-care (01) ==
PROVIDERS: PCP Nurse Practitioner Family; Visit Provider Nurse Practitioner Family
DX: R05.2 Subacute cough (principal); Z13.9 Encounter for screening, unspecified

== ENCOUNTER → 2024-08-20 09:02 | Outpatient (BNVA) | payer OTHER, SELFPAY | PROVIDERS: PCP Nurse Practitioner Family; Visit Provider Nurse Practitioner Family | DX: R05.2 Subacute cough (principal) | CPT/HCPCS: 87880; 99212 ==

== ENCOUNTER 2024-11-12 09:44 | Outpatient (AMB) | payer MEDICARE, SELFPAY ==
[2024-11-12 09:49] VITALS: BP 112/74; PULSE 73; TEMP 36.8; O2SAT 97; BMI 27.9
--- NOTE | 2024-11-12 09:49 | A.OFFPC_ITS ---
Vital Signs 11/12/24 09:49 Height 5 ft 9 in Weight 189 lb BMI 27.9 BP 112/74 Blood Pressure Location Lt brachial Position Sitting Pulse 73 Pulse Source Pulse Oximeter Temp 98.2 F Temp Source Oral Pulse Oximetry (%) 97 Oxygen Delivery Method Room Air Intake Visit Reasons: EP Follow Up Intake Note: pt is here for follow up, requesting referral for ENT Skein Drier Required: No Accompanied by: Self / Same As Patient Allergies No Known Allergies Allergy (Verified 11/12/24 09:51) Medication List - Last Reconciled 11/12/24 by KARIME Sharif- atorvastatin 20 mg PO BEDTIME 90 days cyclobenzaprine 10 mg PO BEDTIME PRN 30 days doxazosin (Cardura) 1 mg PO BEDTIME 90 days lisinopril-hydrochlorothiazide 10-12.5 mg 1 tab PO DAILY pantoprazole 40 mg PO DAILY tadalafil 5 mg PO DAILY PRN trazodone 150 mg PO BEDTIME PRN 90 days triamcinolone acetonide 0.5% 1 appl topical TID Tobacco use date assessed: 11/12/24 Fall risk assessment: No Falls in past year Last assessed Fall Risk: 11/12/24 Dental Screening Dental Screen Date: 11/12/24 Did you have a dental visit in the last 12 months?: Yes Did you have a dental problem in the last 6 months where you did not have access to dental care?: No Was dental information given to patient?: Patient has dentist HPI EP Follow Up HPI Details Chief Complaint Difficulty with erectile function despite medication History of Present Illness The patient is a 69-year-old male presenting with erectile dysfunction. He reports that sildenafil has provided minimal benefit. The condition is affecting his sexual relationship as he occasionally finds himself less attracted to his , which he questions as a potential contributing factor. He has expressed interest in exploring alternative medications such as tadalafil. Currently, plans for future evaluations include laboratory tests to assess testosterone levels. Social History Health Maintenance - Future laboratory assessments to inclu de testosterone levels Review of Systems Physical Exam General: Cooperative, healthy appearing, comfortable, no acute distress and well developed Orientation: Patient oriented x3 Limitations: No limitations Head: Normal to inspection Ears: Hearing grossly normal bilaterally Nose: Normal external nose present Face and sinus: Normal facial exam Eyes: Appearance normal, both eyes and all related structures Neck: Normal visual inspection and Yes full ROM Respiratory: Normal respiratory effort and able to speak in complete sentences. Clear to auscultation bilaterally Cardiovascular: Regular rate and rhythm. Normal S1 and S2 GI: Normal to inspection. Soft to palpation and nontender Neuro: Patient oriented x3 Extremities: Normal to inspection Results Plan - Consideration of alternative medicatio ns, including triamine and tadalafil, for erectile dysfunction. - Laboratory evaluation including testos terone levels to assess hormonal influence. Patient was informed and verbally consented to the use of an ambient scribe for clinic note documentation during this visit. Discussion Notes I discussed with the patient the minimal response to sildenafil and potential benefits of alternative medications like triamine and tadalafil. We talked about further laboratory evaluations, including checking testosterone levels, to rule out any hormonal deficiencies contributing to his condition. I highlighted the importance of coordinating follow-up appointments to monitor the efficacy of new treatments and adjust management as needed. Patient Instructions - Be aware of any changes in symptoms an d note their impact on your daily activities. - Contact the office if you experience a ny adverse reactions to new medications. - Return for follow-up appointments as r ecommended to assess response to treatment and adjust medications if necessary. [facility] Medical History High cholesterol Headache Hypertension Irritable bowel syndrome (IBS) Sinusitis Surgical History No pertinent past surgical history Family History Mother Colon cancer Other No family history of alcoholism No family history of mental disorder Social History Housing: Other Housing Other:: Mobile home Alcohol intake: former Patient Tobacco Use Status: Former Tobacco user e-Cigarette/Vaping Use: Never Used service: No Current occupational status: retired Current occupational exposures/hazards: No Cognitive needs: No Hearing needs: No Vision needs: Yes Questionnaire PHQ-9 Over the last 2 weeks, how often have you been bothered by any of the following problems? 1. Little interest or pleasure in doing things: not at all 2. Feeling down, depressed, or hopeless: not at all 3. Trouble falling or staying asleep, or sleeping too much: several days 4. Feeling tired or having little energy: more than half the days 5. Poor appetite or overeating: not at all 6. Feeling bad about yourself - or that you are a failure or have let yourself or your family down: not at all 7. Trouble concentrating on things, such as reading the newspaper or watching television: not at all 8. Moving or speaking so slowly that other people could have noticed. Or the opposite - being so fidgety or restless that you have been moving around a lot more than usual: not at all 9. Thoughts that you would be better off or of hurting yourself in some way: not at all Total score: 3 Depression Screening Interpretation: Negative Depression Screening Done: Yes 25904 - PHQ-9 Billing: Yes Source: Developed by Drs. Christian Eugene, Nancy Calderon, Isauro Webb and colleagues, with an educational tori from [employer]. Thrive Questionnaire Date Thrive assessed: 11/12/24 I am a: Patient What is your living situation today?: I have a steady place to live Within the past 12 months, did the food you bought not last and you didn't have the money to get more?: Never true Within the past 12 months, did you worry whether your food would run out before you got money to buy more?: Never true Do you have trouble paying for medicines?: No Do you have trouble getting transportation to medical appointments?: No Do you have trouble paying your heating and electricity bill?: No Do you have trouble taking care of your child, family member or friend?: No Do you have trouble with day-to-day activities such as bathing, preparing meals, shopping, managing finances, etc.?: No Are you currently unemployed and looking for a job?: No Are you interested in more education?: No Please select the resources that you would like help with: None Currently or been in a relationship where the following occur: I choose not to answer THRIVE Score: 0 AUDIT C Alcohol Use Questionnaire (AUDIT-C) 1. How often do you have a drink containing alcohol?: Never 3. How often do you have six or more drinks on one occasion?: Never Total Score: 0 Score Reviewed/Action Taken: Yes ALENA-7 AMB Questionnaire ALENA-7 Date ALENA - 7 assessed: 11/12/24 Feeling nervous, anxious, or on edge: 1 = Several days Not being able to stop or control worryin = Several days Worrying too much about different things: 1 = Several days Trouble relaxin = Several days Being so restless that it is hard to sit still: 2 = More than half the days Becoming easily annoyed or irritable: 2 = More than half the days Feeling afraid as if something awful might happen: 0 = Not at all Total ALENA-7 score (0-4 normal; 5-9 mild; 10-14 moderate; 15-21 severe): 8 Source: Developed by Drs. Christian Eugene, Nancy Calderon, Isauro Webb and colleagues, with an educational tori from [employer]. ALENA-7 Assessment Billing ALENA-7 Assessment Tool: ALENA-7 Assessment 38067 Physical exam (Primary Care) Vital Signs: Last Vital Signs Temp 98.2 F 11/12/24 09:49 Pulse 73 11/12/24 09:49 BP 112/74 11/12/24 09:49 Pulse Ox 97 11/12/24 09:49 Oxygen Delivery Method Room Air 11/12/24 09:49 BMI result Body Mass Index 27.9 Tobacco/Smoking Status: Tobacco use Status Tobacco use date assessed 11/12/24 11/12/24 09:54 Patient Tobacco Use Status Former Tobacco user 11/12/24 09:49 e-Cigarette/Vaping Use Never Used 11/12/24 09:49 PHQ-9: PHQ-9 Score PHQ-9: Total score 3 11/12/24 09:54 Depression Screening Interpretation: Negative Thrive Assessment: Date of Thrive Assessment Date Thrive assessed 11/12/24 11/12/24 09:54 Currently or been in a relationship where the following occur: I choose not to answer Coding Level of Care Code Est Pt Level 3 (11362) Diagnoses Erectile dysfunction N52.9 Additional Codes ALENA-7 Assessment Billing - ALENA-7 Assessment Tool: ALENA-7 Assessment 13243 ([id number]) PHQ-9 - 94041 - PHQ-9 Billing: Yes ([id number]) Assessment & Plan Assessment & Plan (1) Erectile dysfunction: Code(s): N52.9 - Male erectile dysfunction, unspecified Category: Medical Plan . Orders: Orders Lutenizing Hormone Today N52.9 - Male erectile dysfunction, unspecified Sex Hormone Binding Globulin Today N52.9 - Male erectile dysfunction, unspecified Testosterone, Free/Total Today N52.9 - Male erectile dysfunction, unspecified Follicle Stimulating Hormone Today N52.9 - Male erectile dysfunction, unspecified Complete Blood Count Auto Diff Today N52.9 - Male erectile dysfunction, unspecified Medications: New tadalafil administer approximately 30min before sexual activity; do not use more than 1 dose per 24hrs 5 mg PO DAILY PRN 10 tabs 0RF sexual activity Discontinued sildenafil Discontinued Reason: Doctor's Order 100 mg PO DAILY 30 days PRN 30 tabs 0RF sexual activity
== END 2024-11-12 10:55 | disposition home or self-care (01) ==
PROVIDERS: PCP Nurse Practitioner Family; Visit Provider Nurse Practitioner Family
DX: N52.9 Male erectile dysfunction, unspecified (principal)

== ENCOUNTER → 2024-11-12 09:44 | Outpatient (BNVA) | payer OTHER, SELFPAY | PROVIDERS: PCP Nurse Practitioner Family; Visit Provider Nurse Practitioner Family | DX: N52.9 Male erectile dysfunction, unspecified (principal) | CPT/HCPCS: 96127; 99212 ==

== ENCOUNTER 2025-05-06 10:11 | Outpatient (REF) | payer MEDICARE, SELFPAY ==
--- OUTSIDE RECORDS SUMMARY | 2025-05-06 11:12 | XMS_ITS ---
Author Name [facility] Organization Unknown Care Team Organization Name Specialty Phone Email Start Date End Da te [facility] Termed, PROVIDER Primary Care 08/02/202204/25
[2025-05-06 13:19] LABS: MANUAL DIFF FLAG NO
[2025-05-06 13:26] LABS: Hematocrit 41.3 % (42.0-52.0); Hemoglobin 14.3 g/dl (14.0-18.0); Imm Gran Abs Auto 0.01 X10*3/uL (0.00-0.03); Imm Gran Pct Auto 0.2 % (0.0-0.4); Lymphocytes Absolute Auto 1.5 X10*3/uL (1.2-4.9); Mean Corpuscular HGB Conc 34.6 g/dl (31.0-36.0); Mean Corpuscular Hemoglobin 31.2 pg (27.0-33.0); Mean Corpuscular Volume 90.0 fL (80.0-98.0); NRBC Abs Auto 0.000 X10*3/uL (0.0-0.012); NRBC Pct Auto 0.0 /100WBC (0.0-0.2); Platelet Count 163 X10*3/uL (160-400); Red Blood Count 4.59 X10*6/uL (4.60-5.80); White Blood Count 4.5 X10*3/uL (4.8-10.8)
[2025-05-08 01:03] LABS: Follicle Stimulating Hormone 20.7 mIU/mL (1.4-12.8)
[2025-05-11 16:58] LABS: Testosterone, Free 51.9 pg/mL (35.0-155.0)
== END 2025-05-06 10:12 | disposition home or self-care (01) ==
LOC: HO.HMGCLDS 10:11
PROVIDERS: PCP Nurse Practitioner Family; Visit Provider Nurse Practitioner Family
DX: N52.9 Male erectile dysfunction, unspecified (principal)
CPT/HCPCS: 36415; 83001; 83002; 84270; 84402; 84403; 85025

== ENCOUNTER 2025-05-07 13:06 | Outpatient (REF) | payer MEDICARE, SELFPAY ==
--- NOTE | ~2025-05-07 | XR_ITS ---
EXAMINATION: XR CHEST 2 VIEWS HISTORY: R53.83 - Other fatigue COMPARISON: There are no prior studies available for comparison. FINDINGS: PA and lateral views of the chest are submitted. The lungs are expanded and clear. There is no pleural effusion, pneumothorax, or pulmonary vascular congestion. The heart is normal in size. The bones are intact. XR/XR chest 2V IMPRESSION: Clear lungs. Electronically signed by: Christian Stewart MD 05/07/2025 03:36 PM EDT
== END 2025-05-07 13:07 | disposition home or self-care (01) ==
LOC: HO.HMGCX 13:06
PROVIDERS: PCP Nurse Practitioner Family; Visit Provider Nurse Practitioner Family
DX: Z00.00 Encounter for general adult medical examination without abnormal findings (principal); E53.8 Deficiency of other specified B group vitamins; R53.83 Other fatigue; G47.00 Insomnia, unspecified; R06.09 Other forms of dyspnea
CPT/HCPCS: 71046; 96127; 99212; 99397

== ENCOUNTER 2025-05-07 13:06 | Outpatient (AMB) | payer MEDICARE, SELFPAY ==
[2025-05-07 13:26] VITALS: BP 114/68; PULSE 70; RESP 16; TEMP 36.9; O2SAT 93; BMI 28.1
--- NOTE | 2025-05-07 13:26 | MHC.PC.OV ---
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 Accompanied by: Self / Same As Patient Allergies No Known Allergies Allergy (Verified 05/07/25 14:58) Medication List - Last Reconciled 05/07/25 by KARIME Sharif- atorvastatin 20 mg PO BEDTIME 90 days cyclobenzaprine 10 mg PO BEDTIME PRN 30 days doxazosin 1 mg PO BEDTIME lisinopril-hydrochlorothiazide 10-12.5 mg 1 tab PO DAILY pantoprazole 40 mg PO DAILY tadalafil 5 mg PO DAILY PRN trazodone 150 mg PO BEDTIME PRN 90 days triamcinolone acetonide 0.5% 1 appl topical TID Tobacco use date assessed: 05/07/25 Fall risk assessment: No Falls in past year Last assessed Fall Risk: 05/07/25 Dental Screening Dental Screen Date: 05/07/25 Did you have a dental visit in the last 12 months?: Yes Did you have a dental problem in the last 6 months where you did not have access to dental care?: No Was dental information given to patient?: Patient has dentist HPI Physical HPI Details History of Present Illness The patient is a 69-year-old male presenting for a physical examination and evaluation of fatigue. The patient reports experiencing fatigue as his primary concern today. He has been experiencing poor sleep quality, waking up at various times during the night despite using trazodone, which provides some relief. He denies any chest pain but reports occasional shortness of breath, particularly when bending over, which may be related to his obesity. The patient also reports constipation, for which he has tried MiraLAX and Metamucil. He has been advised to increase his fiber and water intake and to consider using a fiber supplement and possibly a probiotic. Additionally, he reports urinary frequency and a weak stream at times. A PSA test has been planned to further evaluate these symptoms. The patient has a small umbilical hernia, which has been noted during the examination. His cardiovascular examination revealed normal S1 and S2 heart sounds with no carotid bruits, and his lungs were clear to auscultation bilaterally. Health Maintenance - Colon cancer screening is up to date Social History Review of Systems - Cardiovascular: Denies chest pain - Respiratory: Reports shortness of breath when bending over - Gastrointestinal: Reports constipation; denies abdominal pain, diarrhea - Genitourinary: Reports urinary frequency and weak stream - Neurological: Reports fatigue - Sleep: Reports poor sleep quality despite trazodone use Physical Exam General: Cooperative, healthy appearing, comfortable, no acute distress and well developed Orientation: Patient oriented x3 Limitations: No limitations Head: Normal to inspection Ears: Hearing grossly normal bilaterally Nose: Normal external nose present Face and sinus: Normal facial exam Eyes: Appearance normal, both eyes and all related structures Neck: Normal visual inspection and Yes full ROM Respiratory: Normal respiratory effort and able to speak in complete sentences. Clear to auscultation bilaterally Cardiovascular: Regular rate and rhythm. Normal S1 and S2 GI: Normal to inspection. Soft to palpation and nontender. Does have a small umbilical hernia : Testicles without masses/lesions and no hernias appreciated. Reports a weak stream sometimes, some frequency intermittently. Skin: No rashes or lesions noted Neuro: Patient oriented x3 Extremities: Normal to inspection Results Plan The patient will undergo further diagnostic testing to address his fatigue, including laboratory tests such as BNP, iron, ferritin, and levels. Additionally, an echocardiogram, EKG, and chest X-ray will be performed to evaluate his cardiovascular and respiratory status. For his constipation, the patient is advised to increase fiber and water intake and consider using a fiber supplement and probiotic. A referral to sleep medicine is planned to address his sleep disturbances. A PSA test will be conducted to evaluate his urinary symptoms, including frequency and weak stream. Patient Instructions - Increase fiber and water intake to help with constipation. - Consider using a fiber supplement and probiotic. - Follow up with sleep medicine for sleep disturbances. - Undergo scheduled tests: echocardiogram, EKG, chest X-ray, and PSA. [facility], [facility] Medical History High cholesterol Headache Hypertension Irritable bowel syndrome (IBS) Sinusitis Surgical History No pertinent past surgical history Family History Mother Colon cancer Other No family history of alcoholism No family history of mental disorder Social History Housing: Other Housing Other:: Mobile home Alcohol intake: former Patient Tobacco Use Status: Former Tobacco user e-Cigarette/Vaping Use: Never Used service: No Current occupational status: retired Current occupational exposures/hazards: No Cognitive needs: No Hearing needs: No Vision needs: Yes Questionnaire PHQ-9 Over the last 2 weeks, how often have you been bothered by any of the following problems? 1. Little interest or pleasure in doing things: several days 2. Feeling down, depressed, or hopeless: several days 3. Trouble falling or staying asleep, or sleeping too much: nearly every day 4. Feeling tired or having little energy: nearly every day 5. Poor appetite or overeating: not at all 6. Feeling bad about yourself - or that you are a failure or have let yourself or your family down: not at all 7. Trouble concentrating on things, such as reading the newspaper or watching television: not at all 8. Moving or speaking so slowly that other people could have noticed. Or the opposite - being so fidgety or restless that you have been moving around a lot more than usual: not at all 9. Thoughts that you would be better off or of hurting yourself in some way: not at all Total score: 8 Depression Screening Interpretation: Positive Depression Screening Done: Yes 65085 - PHQ-9 Billing: Yes Source: Developed by Drs. Christian Eugene, Nancy Calderon, Isauro Webb and colleagues, with an educational tori from [email or web address]. Thrive Questionnaire Date Thrive assessed: 11/12/24 I am a: Patient What is your living situation today?: I have a steady place to live Within the past 12 months, did the food you bought not last and you didn't have the money to get more?: Never true Within the past 12 months, did you worry whether your food would run out before you got money to buy more?: Never true Do you have trouble paying for medicines?: No Do you have trouble getting transportation to medical appointments?: No Do you have trouble paying your heating and electricity bill?: No Do you have trouble taking care of your child, family member or friend?: No Do you have trouble with day-to-day activities such as bathing, preparing meals, shopping, managing finances, etc.?: No Are you currently unemployed and looking for a job?: No Are you interested in more education?: No Please select the resources that you would like help with: None Currently or been in a relationship where the following occur: I choose not to answer THRIVE Score: 0 AUDIT C Alcohol Use Questionnaire (AUDIT-C) 2. How many drinks containing alcohol do you have on a typical day when you are drinking?: 1 or 2 3. How often do you have six or more drinks on one occasion?: Never Total Score: 0 ALENA-7 AMB Questionnaire ALENA-7 Date ALENA - 7 assessed: 05/07/25 Feeling nervous, anxious, or on edge: 1 = Several days Not being able to stop or control worryin = Several days Worrying too much about different things: 1 = Several days Trouble relaxin = Several days Being so restless that it is hard to sit still: 2 = More than half the days Becoming easily annoyed or irritable: 2 = More than half the days Feeling afraid as if something awful might happen: 0 = Not at all Total ALENA-7 score (0-4 normal; 5-9 mild; 10-14 moderate; 15-21 severe): 8 Source: Developed by Drs. Christian Eugene, Nancy Calderon, Isauro Webb and colleagues, with an educational tori from [employer]. ALENA-7 Assessment Billing ALENA-7 Assessment Tool: ALENA-7 Assessment 53651 Physical exam (Primary Care) Vital Signs: Last Vital Signs Temp 98.5 F 05/07/25 13:26 Pulse 70 05/07/25 13:26 Resp 16 05/07/25 13:26 BP 114/68 05/07/25 13:26 Pulse Ox 93 05/07/25 13:26 Oxygen Delivery Method Room Air 05/07/25 13:26 BMI result Body Mass Index 28.1 Tobacco/Smoking Status: Tobacco use Status Tobacco use date assessed 05/07/25 05/07/25 13:31 Patient Tobacco Use Status Former Tobacco user 05/07/25 13:31 e-Cigarette/Vaping Use Never Used 05/07/25 13:31 PHQ-9: PHQ-9 Score PHQ-9: Total score 8 05/07/25 14:25 Depression Screening Interpretation: Positive Thrive Assessment: Date of Thrive Assessment Date Thrive assessed 11/12/24 05/07/25 13:31 Currently or been in a relationship where the following occur: I choose not to answer Coding Level of Care Code Est Pt Level 3 (41859) Est Pt Prev Care >65y(14278) Diagnoses Physical exam, annual Z00.00 B12 deficiency E53.8 Fatigue R53.83 Insomnia G47.00 Breathing difficulty R06.89 Screening for prostate cancer Z12.5 Additional Codes ALENA-7 Assessment Billing - ALENA-7 Assessment Tool: ALENA-7 Assessment 28135 ([id number]) PHQ-9 - 54776 - PHQ-9 Billing: Yes ([id number]) Assessment & Plan Assessment & Plan (1) Physical exam, annual: Code(s): Z00.00 - Encounter for general adult medical examination without abnormal findings Category: Medical (2) B12 deficiency: Code(s): E53.8 - Deficiency of other specified B group vitamins Category: Medical (3) Fatigue: Code(s): R53.83 - Other fatigue Category: Medical (4) Insomnia: Code(s): G47.00 - Insomnia, unspecified Category: Medical (5) Breathing difficulty: Code(s): R06.89 - Other abnormalities of breathing Category: Medical (6) Screening for prostate cancer: Code(s): Z12.5 - Encounter for screening for malignant neoplasm of prostate Category: Medical Plan . Orders: Orders Complete Blood Count Auto Diff Today Z00.00 - Encounter for general adult medical examination without abnormal findings Lipid Panel Today Z00.00 - Encounter for general adult medical examination without abnormal findings XR chest 2V Today R53.83 - Other fatigue CA echo transthoracic complete Today R53.83 - Other fatigue AMB EKG-In Office Today R53.83 - Other fatigue Prostate Specific Antigen Scr Today Z12.5 - Encounter for screening for malignant neoplasm of prostate Comprehensive [place]. Panel Fast Today Z00.00 - Encounter for general adult medical examination without abnormal findings TSH reflex Free T4 Today Z00.00 - Encounter for general adult medical examination without abnormal findings UA CC w/rflx Micro + Cult Today Z00.00 - Encounter for general adult medical examination without abnormal findings Vitamin B12 and Folate Today E53.8 - Deficiency of other specified B group vitamins B Type Natriuretic Peptide Today G47.00 - Insomnia, unspecified, R53.83 - Other fatigue IRON PROFILE Today R53.83 - Other fatigue Ferritin Today R53.83 - Other fatigue Referrals Sleep Medicine Referral R53.83 - Other fatigue Ear/Nose/Throat Referral R06.89 - Other abnormalities of breathing Medications: Discontinued cyclobenzaprine Discontinued Reason: Doctor's Order 10 mg PO BEDTIME 30 days PRN 30 tabs 0RF muscle spasm
== END 2025-05-07 17:00 | disposition home or self-care (01) ==
LOC: HO.HMCC 13:07
PROVIDERS: PCP Nurse Practitioner Family; Visit Provider Nurse Practitioner Family
DX: Z00.00 Encounter for general adult medical examination without abnormal findings (principal); E53.8 Deficiency of other specified B group vitamins; R53.83 Other fatigue; G47.00 Insomnia, unspecified; R06.89 Other abnormalities of breathing; Z12.5 Encounter for screening for malignant neoplasm of prostate

== ENCOUNTER → 2025-05-07 15:16 | Outpatient (BNV) | payer MEDICARE, SELFPAY | PROVIDERS: PCP Nurse Practitioner Family; Visit Provider Radiology Diagnostic Radiology | DX: R53.83 Other fatigue (principal) | CPT/HCPCS: 71046 ==

== ENCOUNTER 2025-05-15 09:27 | Outpatient (AMB) | payer MEDICARE, SELFPAY ==
--- NOTE | 2025-05-15 09:52 | MHC.OFFVIS ---
Vital Signs 05/15/25 09:57 Height 5 ft 9 in Weight 193 lb BMI 28.5 BP 114/64 Blood Pressure Location Lt brachial Position Sitting Pulse 67 Pulse Source Pulse Oximeter Pulse Oximetry (%) 94 Oxygen Delivery Method Room Air Intake Visit Reasons: INP-Fatigue Intake Note: Patient presents HVAC DESIGN ENGINEER Fatigue. The patient reports experiencing fatigue as his primary concern today. He has been experiencing poor sleep quality, waking up at various times during the night despite using trazodone, which provides some relief. Goes to bed around 11 and wakes up around 2 and hard time falling back to sleep. Accompanied by: Spouse Allergies No Known Allergies Allergy (Verified 05/15/25 10:02) HPI Comments Details: 69 year old male presents for a sleep apnea evaluation referred to us by his pcp. Alyson his partner brings him in today and helps with history. He goes to sleep about 11pm and takes trazadone and atorvastatin at night. He feels trazadone is not working anymore, he falls asleep then gets up at 1am to 2am for the bathroom break. He tosses and turns and at 3am finally falls asleep for the evening. He wakes up at 8:30am in the morning and feels chronically fatigued. He snores loudly at night, denies gasping, g/f says his feet move a lot at night.He denies grinding/clenching of teeth, and TMJ pain. He denies morning headaches. He denies RLS, symtpoms, denies numbness, tingling and burning. His bp is managed with 3 meds. Memory mood and diet is good. FORMERLY [facility] Medical History High cholesterol Headache Hypertension Irritable bowel syndrome (IBS) Sinusitis Surgical History No pertinent past surgical history Family History Mother Colon cancer Other No family history of alcoholism No family history of mental disorder Social History Housing: Other Housing Other:: Mobile home Alcohol intake: former Patient Tobacco Use Status: Former Tobacco user e-Cigarette/Vaping Use: Never Used service: No Current occupational status: retired Current occupational exposures/hazards: No Cognitive needs: No Hearing needs: No Vision needs: Yes Physical Exam Vital Signs: Last Vital Signs Pulse 67 05/15/25 09:57 BP 114/64 05/15/25 09:57 Pulse Ox 94 05/15/25 09:57 Oxygen Delivery Method Room Air 05/15/25 09:57 BMI result Body Mass Index 28.5 Const General: cooperative, comfortable and no acute distress Nutritional Appearance: average body habitus Orientation/consciousness: patient oriented x3 HEENT Face and sinus: Yes face symmetric Teeth and gingiva: other (mallampti score is 3) Throat: Yes uvula midline Eyes Pupils: Equal, round and reactive pupils present Neck Neck: Yes full ROM Resp Effort & Inspection: normal respiratory effort and able to speak in complete sentences Neuro General: patient oriented x3 and moves all extremities Cranial nerves: Yes Equal, round and reactive pupils present, Yes Normal accommodation reflex present, Yes Normal facial strength present, Yes Midline tongue present, Yes Ability to bilaterally rotate head present and Yes Ability to bilaterally elevate shoulders present Cognition (Neuro): normal cognition Gait exam (Neuro): Normal gait present Motor exam (neuro): 5/5 motor strength present throughout and Normal motor muscle tone present throughout Psych Appearance: grossly normal Speech and movement: Normal speech and movement present Assessment & Plan Assessment & Plan (1) Excessive daytime sleepiness: Code(s): G47.19 - Other hypersomnia Category: Medical (2) Fatigue: Code(s): R53.83 - Other fatigue Category: Medical Qualifiers: Fatigue type: unspecified Qualified Code(s): R53.83 - Other fatigue Plan HST r/o JASON Fatigue r/o Iron Deficiency Anemia 3 month f/u Orders: Orders RT home sleep study Today G47.19 - Other hypersomnia Homocysteine Today G47.19 - Other hypersomnia, G47.9 - Sleep disorder, unspecified, R53.83 - Other fatigue Vitamin B1 Today G47.19 - Other hypersomnia Vitamin B6 Today R53.83 - Other fatigue Methylmalonic Acid Today G47.19 - Other hypersomnia, G47.9 - Sleep disorder, unspecified, R53.83 - Other fatigue Patient Instructions: Sleep Hygiene provided: set a scheduled bedtime and wake time to help regulate the circadian rhythm and balance the release of pituitary hormones. Sleep in a dark room, temperatures below 68 degrees, and no devices n bed. Limit caffeinated products 6 hours prior to bed, and limit fluids 2-4 hours prior to bed. Gentle night yoga, diffusing essential oils, and playing soft music can be relaxing. 1.HST 2.Labs fasting 3.will start iron once labs are completed. Coding Level of Care Code New Pt Level 4 (11297) Diagnoses Excessive daytime sleepiness G47.19 Fatigue, unspecified type R53.83 Fatigue type: unspecified Sleep Questionnaire Difficulty falling asleep: Yes Difficulty staying asleep?: Yes Number of arousals: multiple Snoring: Yes Witnessed apneas: No Gasping arousals: No Nocturia: No GERD: No Vivid dreams: No Acting out dreams: No Abnormal behavior in sleep: No Abnormal movements in sleep: No Morning headaches: No Excessive daytime sleepiness: Yes Daytime naps: Yes (1.5 hour daily naps.) Restless legs: No Hallucinations: No Sleep paralysis: No Drop attacks: No Sleep Study: No CPAP: No
[2025-05-15 09:57] VITALS: BP 114/64; PULSE 67; O2SAT 94; BMI 28.5
== END 2025-05-15 11:10 | disposition home or self-care (01) ==
PROVIDERS: PCP Nurse Practitioner Family; Visit Provider Physician Assistant Medical
DX: G47.19 Other hypersomnia (principal); R53.83 Other fatigue
CPT/HCPCS: 99204

== ENCOUNTER → 2025-05-15 09:27 | Outpatient (BNVA) | payer MEDICARE, SELFPAY | PROVIDERS: PCP Nurse Practitioner Family; Visit Provider Physician Assistant Medical | DX: G47.19 Other hypersomnia (principal); R53.83 Other fatigue | CPT/HCPCS: 99202 ==

== ENCOUNTER 2025-05-19 09:21 | Outpatient (REF) | payer MEDICARE, SELFPAY | END 2025-05-19 09:22 | disposition home or self-care (01) | LOC: HO.HKASLDS 09:21 | PROVIDERS: Visit Provider Physician Assistant Medical | DX: G47.19 Other hypersomnia (principal); R53.83 Other fatigue | CPT/HCPCS: 36415; 83090; 83921; 84207; 84425 ==

== ENCOUNTER → 2025-06-24 11:00 | Outpatient (REF) | payer MEDICARE, SELFPAY ==
--- NOTE | 2025-06-24 11:03 | CA_ITS ---
Transthoracic Echocardiogram Patient (Last, First, Middle): Christian Huizar J Gender: M Date of : 1955 Age: 70 Procedure Date: 06/24/2025 Procedure Type: Transthoracic Echocardiogram Location: OP Height: 175.26 cm Weight: 85.73 kg BSA: 2.02 m2 Heart Rate: bpm BP: 114 / 64 mmHg Filler In: CP/RC Referring MD: Burke Demarco [facility] Symptoms: R53.83 - Other fatigue Study Quality: Adequate ECG Rhythm: Sinus Conclusions: - The left ventricular systolic function is normal. The calculated ejection fraction is 61% by biplane method. - No obvious valvular pathology seen on this study. Findings Left Ventricle Normal left ventricular cavity size. The left ventricular systolic function is normal. The calculated ejection fraction is 61% by biplane method. There is no evidence of regional wall motion abnormalities. Diastolic function is normal for age. Moderate focal hypertrophy of the basal septum. Right Ventricle Mildly increased right ventricular cavity size. There is normal right ventricular systolic function. Atria Both atria are normal in size. Aortic Valve There is a normal trileaflet aortic valve. There is mild calcification of the aortic valve. There is no aortic valve stenosis. There is no aortic valve regurgitation. Mitral Valve The mitral valve appears normal. There is no mitral valve regurgitation. There is no mitral valve stenosis. Pulmonic Valve The pulmonic valve is likely normal. Tricuspid Valve Normal tricuspid valve structure. There is no tricuspid valve regurgitation. Tricuspid regurgitation envelope is inadequate for calculation of right ventricular systolic pressure. Great Vessels The asc aorta and aortic arch are normal in size. Venous The inferior vena cava is normal in size and collapses greater than 50% with inspiration. Pericardium/Pleural There is no evidence of pericardial effusion. Prior Study Comparison No prior study available for comparison. Recommendations, Care & Conclusions No obvious valvular pathology seen on this study. Measurements 2D Linear Measurements IVSd: 1.33 0.6-0.9/0.6-1.0 cm LVIDd: 3.65 3.9-5.3/4.2-5.9 cm LVIDd Index: 1.81 2.4-3.2/2.2-3.1 cm/m2 LVIDs: 2.31 2.0-3.6 cm LVPWd: 0.85 0.7-1.1 cm LA Diam: 3.00 2.7-3.8/3.0-4.0 cm LAIDs Index: 1.49 1.5-2.3 cm/m2 LV Mass: 154.98 67-162/88-224 g LV Mass Index: 76.72 43-95/49-115 g/m2 LVOT Diam: 2.10 3.0+(-)1.3 cm 2D Systolic Function EF 4C: 63.70 >55% EF 2C: 57.70 >55% EF BiP: 60.60 >55% Mitral Valve MV Pk E: 0.71 MV PK A: 0.81 MV Decel Time: 220.00 E/A: 0.90 E'Lateral: 6.74 E'Medial: 5.22 E/E' Med: 13.60 E/E' Lat: 10.50 PHT: 64.00 MVA PHT: 3.44 Decel Scott: 3.23 Aortic Valve AoV Pk Nishant: 1.55 AoV Mn Nishant: 1.03 AoV VTI: 0.34 AoV Pk Grad: 10.00 Aov Mn Grad: 5.00 KIZZY Cont.VTI: 2.03 LVOT LVOT Pk Nishant: 0.83 LVOT Mn Nishant: 0.60 LVOT VTI: 0.20 LVOT Pk Grad: 3.00 LVOT Mn Grad: 2.00 LVOT Diam: 2.10 LVOT Area: 3.46 Diastolic Function MV Pk E: 0.71 MV Pk A: 0.81 E/A: 0.90 E'Medial: 5.22 E/E' Med: 13.60 E' Laterial: 6.74 E/E' Lat: 10.50 Right Ventricle TAPSE (mm): 26.70 TVS' Nishant: 15.70 Tricuspid Valve RA Press: 3.00 Great Vessels Aorta Sinus of Valsalva: 3.35 2.0-3.[address] [place]: 2.95 1.7-3.4 cm Ao Asc: 3.30 2.1-3.4 cm Ao Arch: 3.10 Pulmonary Veins Pulm Vein S/D 1.50 Pulmonary Valve PV Pk Nishant: 1.17 Peak PV Grad: 5.00 Updated in Other Vendor System with Status of Final Trell Madrid MD electronically signed on 06/25/2025 12:44:30 PM with status of Final
== END ==
LOC: HO.CARD 11:00
PROVIDERS: PCP Nurse Practitioner Family; Visit Provider Nurse Practitioner Family
DX: R06.02 Shortness of breath (principal); R53.83 Other fatigue
CPT/HCPCS: 93306

== ENCOUNTER → 2025-06-24 11:03 | Outpatient (BNV) | payer MEDICARE, SELFPAY | PROVIDERS: PCP Nurse Practitioner Family; Visit Provider Internal Medicine | DX: I42.2 Other hypertrophic cardiomyopathy (principal) | CPT/HCPCS: 93306 ==

== ENCOUNTER 2025-09-15 13:41 | Outpatient (AMB) | payer MEDICARE, SELFPAY ==
--- NOTE | 2025-09-15 13:44 | MHC.PC.OV ---
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 Accompanied by: Self / Same As Patient Allergies No Known Allergies Allergy (Verified 09/15/25 14:28) Medication List - Last Reconciled 09/15/25 by KARIME Sharif- atorvastatin 20 mg PO BEDTIME 90 days doxazosin 1 mg PO BEDTIME lisinopril-hydrochlorothiazide 10-12.5 mg 1 tab PO DAILY pantoprazole 40 mg PO DAILY sildenafil 100 mg PO DAILY PRN trazodone 150 mg PO BEDTIME PRN 90 days triamcinolone acetonide 0.5% 1 appl topical TID Tobacco use date assessed: 09/15/25 Fall risk assessment: No Falls in past year Last assessed Fall Risk: 09/15/25 Dental Screening Dental Screen Date: 09/15/25 Did you have a dental visit in the last 12 months?: Yes Did you have a dental problem in the last 6 months where you did not have access to dental care?: No Was dental information given to patient?: Patient has dentist HPI 4m follow up HPI Details Chief Complaint The patient presents with multiple concerns, including breathing issues, erectile dysfunction, and incomplete defecation. History of Present Illness The patient is a 70 year old male presenting with multiple issues, including sinus congestion, erectile dysfunction, and incomplete defecation. He reports significant sinus congestion causing breathing issues, for which he was previously advised to use nasal saline and fluticasone. He also reports erectile dysfunction, for which he previously tried sildenafil 100 mg and notes it seemed to help a little bit. Additionally, he experiences incomplete defecation, feeling as though stool is left after a bowel movement, which leads to a messy cleanup that he describes as almost like fecal incontinence. He was on a bowel regimen at one time and recalls that stool softeners were helpful. Other reported symptoms include an intermittent cough and stomach grumbling. Social History Health Maintenance Review of Systems - HEENT: Reports sinus congestion. - Respiratory: Reports an intermittent cough. - Gastrointestinal: Reports stomach grumbling, a sensation of incomplete defecation, and fecal soiling. - Genitourinary: Reports erectile dysfunction. -denies any sob or cp Physical Exam General: Cooperative, healthy appearing, comfortable, no acute distress and well developed Orientation: Patient oriented x3 Limitations: No limitations Head: Normal to inspection Ears: Hearing grossly normal bilaterally, bilateral cerumen right greater than left, unable to see the right TM due to ear cerumen Nose: Normal external nose present Face and sinus: Reports of a lot of sinus congestion Eyes: Appearance normal, both eyes and all related structures Neck: Normal visual inspection and Yes full ROM Respiratory: Normal respiratory effort and able to speak in complete sentences. Clear to auscultation bilaterally, though reports an intermittent cough Cardiovascular: Regular rate and rhythm. Normal S1 and S2 GI: Normal to inspection. Soft to palpation and nontender, reports grumbling in the stomach and incomplete defecation Skin: No rashes or lesions noted Neuro: Patient oriented x3 Extremities: Normal to inspection Results Plan 1. Sinus Congestion The patient reports breathing issues and sinus congestion, though a deviated septum does not appear to be present. He has previously used nasal saline and was advised to use fluticasone. A referral will be made to ENT for further evaluation as requested. 2. Erectile Dysfunction The patient reports erectile dysfunction, with some prior benefit from sildenafil. A prescription for sildenafil 100 mg will be sent. If this treatment is not effective, a referral to a urologist will be placed. 3. Incomplete Defecation The patient describes a sensation of incomplete defecation leading to messy cleanups, which he likens to fecal incontinence. He will be advised to resume stool softeners, which he reports helped in the past. A referral will be made to Gastroenterology for further evaluation. Discussion Notes I discussed the patient's concern about breathing issues, noting it seems to be related to sinus congestion, and agreed to his request for a referral to an ENT specialist for further evaluation. We addressed his report of erectile dysfunction, and I informed him I would prescribe sildenafil again, with the understanding that if it is not effective, I will refer him to a urologist. Regarding his bowel issues of incomplete defecation and soiling, I recommended he restart stool softeners and informed him that I will be referring him to a tank truck mechanic for a more detailed assessment. Patient Instructions - A referral will be made for you to see an Ear, Nose, and Throat (ENT) specialist for your breathing and sinus problems. - A prescription for Sildenafil 100 mg will be sent to your pharmacy for erectile dysfunction. If this doesn't help, we will refer you to a urologist. - Please start taking stool softeners again for your bowel issues. - A referral will be made for you to see a tank truck mechanic (a doctor specializing in the digestive system) for your bowel issues. FORMERLY [facility] Medical History High cholesterol Headache Hypertension Irritable bowel syndrome (IBS) Sinusitis Surgical History No pertinent past surgical history Family History Mother Colon cancer Other No family history of alcoholism No family history of mental disorder Social History Housing: Other Housing Other:: Mobile home Alcohol intake: former Patient Tobacco Use Status: Former Tobacco user e-Cigarette/Vaping Use: Never Used service: No Current occupational status: retired Current occupational exposures/hazards: No Cognitive needs: No Hearing needs: No Vision needs: Yes Questionnaire Thrive Questionnaire Date Thrive assessed: 11/12/24 I am a: Patient What is your living situation today?: I have a steady place to live Within the past 12 months, did the food you bought not last and you didn't have the money to get more?: Never true Within the past 12 months, did you worry whether your food would run out before you got money to buy more?: Never true Do you have trouble paying for medicines?: No Do you have trouble getting transportation to medical appointments?: No Do you have trouble paying your heating and electricity bill?: No Do you have trouble taking care of your child, family member or friend?: No Do you have trouble with day-to-day activities such as bathing, preparing meals, shopping, managing finances, etc.?: No Are you currently unemployed and looking for a job?: No Are you interested in more education?: No Currently or been in a relationship where the following occur: I choose not to answer THRIVE Score: 0 ALENA-7 AMB Questionnaire ALENA-7 Date ALENA - 7 assessed: 05/07/25 Source: Developed by DrsRhea Eugene, Nancy Calderon, Isauro Webb and colleagues, with an educational tori from [employer]. Physical exam (Primary Care) Vital Signs: Last Vital Signs Temp 98.7 F 09/15/25 13:45 Pulse 73 09/15/25 13:45 Resp 16 09/15/25 13:45 BP 118/64 09/15/25 13:45 Pulse Ox 96 09/15/25 13:45 Oxygen Delivery Method Room Air 09/15/25 13:45 BMI result Body Mass Index 28.6 Tobacco/Smoking Status: Tobacco use Status Tobacco use date assessed 09/15/25 09/15/25 13:51 Patient Tobacco Use Status Former Tobacco user 09/15/25 13:45 e-Cigarette/Vaping Use Never Used 09/15/25 13:45 Thrive Assessment: Date of Thrive Assessment Date Thrive assessed 11/12/24 09/15/25 13:45 Currently or been in a relationship where the following occur: I choose not to answer Office Procedures Cerumen Removal From which ear canal was the cerumen removed: bilateral Removal: irrigation Notes: patient tolerated procedure well, no complications and ear canal clear [id number] Irrigation/Lavage Coding Level of Care Code Est Pt Level 4 (69945) Diagnoses Breathing difficulty R06.89 Incomplete defecation R15.0 Screening for prostate cancer Z12.5 Erectile dysfunction N52.9 Cerumen debris on tympanic membrane of both ears H61.23 CPT Codes Office Procedure - CPT: 57224-Klr Irrigation/Lavage ([id number]) Assessment & Plan Assessment & Plan (1) Breathing difficulty: Code(s): R06.89 - Other abnormalities of breathing Category: Medical (2) Incomplete defecation: Code(s): R15.0 - Incomplete defecation Category: Medical (3) Screening for prostate cancer: Code(s): Z12.5 - Encounter for screening for malignant neoplasm of prostate Category: Medical (4) Erectile dysfunction: Code(s): N52.9 - Male erectile dysfunction, unspecified Category: Medical (5) Cerumen debris on tympanic membrane of both ears: Code(s): H61.23 - Impacted cerumen, bilateral Category: Medical Plan . Orders: Orders Complete Blood Count Auto Diff Today R15.0 - Incomplete defecation TSH reflex Free T4 Today R15.0 - Incomplete defecation Comprehensive [place]. Panel Fast Today R15.0 - Incomplete defecation UA CC w/rflx Micro + Cult Today R15.0 - Incomplete defecation Lipid Panel Today R15.0 - Incomplete defecation Prostate Specific Antigen Scr Today Z12.5 - Encounter for screening for malignant neoplasm of prostate Referrals Ear/Nose/Throat Referral R06.89 - Other abnormalities of breathing Gastroenterology Referral R15.0 - Incomplete defecation Medications: New sildenafil administer 30 minutes to 4 hours before activity 100 mg PO DAILY PRN 14 tabs 0RF sexual activity sildenafil administer 30 minutes to 4 hours before activity 100 mg PO DAILY PRN 14 tabs 0RF sexual activity
[2025-09-15 13:45] VITALS: BP 118/64; PULSE 73; RESP 16; TEMP 37.1; O2SAT 96; BMI 28.6
== END 2025-09-15 14:48 | disposition home or self-care (01) ==
LOC: HO.HMCC 13:42
PROVIDERS: PCP Nurse Practitioner Family; Visit Provider Nurse Practitioner Family
DX: R06.89 Other abnormalities of breathing (principal); R15.0 Incomplete defecation; N52.9 Male erectile dysfunction, unspecified; H61.23 Impacted cerumen, bilateral; Z12.5 Encounter for screening for malignant neoplasm of prostate

== ENCOUNTER → 2025-09-15 13:41 | Outpatient (BNVA) | payer MEDICARE, SELFPAY | PROVIDERS: PCP Nurse Practitioner Family; Visit Provider Nurse Practitioner Family | DX: R15.0 Incomplete defecation (principal); R06.89 Other abnormalities of breathing; N52.9 Male erectile dysfunction, unspecified; H61.23 Impacted cerumen, bilateral | CPT/HCPCS: 69209; 99212 ==